=== PATIENT | male | born 1980 | race African-American/Black ===

== ENCOUNTER 2016-06-28 08:19 | Emergency (ER) | payer MEDICARE ==
[~2016-06-28] VITALS: Ht 180.3 cm; Wt 81.6 kg
[2016-06-28 08:31] VITALS: BP 152/91
[2016-06-28] MEDS ORDERED: DOXY100C37 PO (09:35)
[2016-06-28] MEDS ORDERED: ULTR50TA PO (09:35)
== END 2016-06-28 09:57 | disposition home or self-care (01) ==
LOC: M ED 09:51
DX: L73.2 Hidradenitis suppurativa (principal)

== ENCOUNTER 2016-09-16 10:39 | Emergency (ER) | payer MEDICARE ==
[~2016-09-16] VITALS: Ht 180.3 cm; Wt 81.6 kg
[~2016-09-16 10:39] MED LIST: DOXY100C37 PO; ULTR50TA PO
[2016-09-16] MEDS ORDERED: NORCO, ANEXSIA 5/325MG TABLET (HYDROcodone/ACETAMINOPHEN) PO ONE (11:30)
--- NOTE | 2016-09-16 11:42 | REP ---
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 There is no acute fracture or subluxation. There is no disc bulge or herniation. The spinal canal and neural foramina are patent. The intervertebral discs and vertebral bodies are normal in height. IMPRESSION: There is no acute fracture or subluxation. Signed by Mayito Pereira MD 09/16/2016 11:33 A
--- NOTE | 2016-09-16 12:10 | REP ---
THORACIC SPINE SERIES: Three views. HISTORY: Trauma. FINDINGS: Thoracic vertebral body heights are preserved and alignment is normal. There is minimal discogenic spurring in the mid thoracic spine. Pedicles and posterior elements are intact. No paravertebral soft-tissue mass is seen. IMPRESSION: No fracture or collapse seen. Negative T-spine views. Signed by Conner Rodrate MD 09/16/2016 01:00 P
[2016-09-16] MEDS ORDERED: ZANA4TAB PO (12:17)
[2016-09-16] MEDS ORDERED: IBUP600T26 PO (12:17)
[2016-09-16 12:26] VITALS: BP 156/98
== END 2016-09-16 12:30 | disposition home or self-care (01) ==
LOC: M ED 11:21
DX: S13.4XXA Sprain of ligaments of cervical spine, initial encounter (principal); W10.8XXA Fall (on) (from) other stairs and steps, initial encounter; Y92.018 Other place in single-family (private) house as the place of occurrence of the external cause; Y93.89 Activity, other specified; Y99.8 Other external cause status; Z87.820 Personal history of traumatic brain injury; Z88.0 Allergy status to penicillin; F17.210 Nicotine dependence, cigarettes, uncomplicated

== ENCOUNTER 2016-10-18 11:42 | Emergency (ER) | payer MEDICARE, OTHER ==
[~2016-10-18] VITALS: Ht 180.3 cm; Wt 92.0 kg
[~2016-10-18 11:42] MED LIST changes: +IBUP-1022 PO; -ULTR50TA PO; +ULTR50TA8 PO; +ZANA4TAB PO
[2016-10-18 11:43] VITALS: BP 143/96
[2016-10-18] MEDS ORDERED: NORCO, ANEXSIA 5/325MG TABLET (HYDROcodone/ACETAMINOPHEN) PO ONE (12:30)
[2016-10-18] MEDS ORDERED: BACT800T5 PO (12:30)
[2016-10-18] MEDS ORDERED: NORCOTAB PO (12:30)
[2016-10-18] MEDS ORDERED: BACTRIM 160MG/800MG DS TAB PO ONE (12:30)
== END 2016-10-18 12:59 | disposition home or self-care (01) ==
LOC: M ED 11:42
DX: L02.411 Cutaneous abscess of right axilla (principal); Z87.820 Personal history of traumatic brain injury; Z88.0 Allergy status to penicillin; F17.210 Nicotine dependence, cigarettes, uncomplicated

== ENCOUNTER 2017-05-20 12:22 | Emergency (ER) | payer MEDICARE, OTHER | END 2017-05-20 13:21 | disposition left against medical advice (07) | LOC: M ED 12:22 | DX: Z53.29 Procedure and treatment not carried out because of patient's decision for other reasons (principal) ==

== ENCOUNTER 2017-05-21 09:41 | Emergency (ER) | payer MEDICARE, OTHER | END 2017-05-21 10:42 | disposition home or self-care (01) | LOC: M ED 09:41 | DX: L02.412 Cutaneous abscess of left axilla (principal); L73.2 Hidradenitis suppurativa; Z88.0 Allergy status to penicillin; F17.210 Nicotine dependence, cigarettes, uncomplicated | CPT/HCPCS: 87186; 87205 ==

== ENCOUNTER 2017-07-06 13:30 | Emergency (ER) | payer MEDICARE, OTHER ==
[2017-07-06] MEDS: NAPROXEN 250 MG TAB PO (13:58)
[2017-07-06] MEDS: DERMABOND TOPICAL SKIN ADHESIVE TOP (13:58)
== END 2017-07-06 14:13 | disposition home or self-care (01) ==
LOC: M ED 13:30
DX: S61.215A Laceration without foreign body of left ring finger without damage to nail, initial encounter (principal); W26.0XXA Contact with knife, initial encounter; Y92.009 Unspecified place in unspecified non-institutional (private) residence as the place of occurrence of the external cause; Y93.G1 Activity, food preparation and clean up; Z88.0 Allergy status to penicillin
CPT/HCPCS: 12001

== ENCOUNTER 2017-12-08 22:01 | Emergency (ER) | payer MEDICARE ==
[2017-12-08 23:35] LABS: KETONE, URINE AUTO RFX NEGATIVE (NEGATIVE); LEUKOCYTE ESTERASE UR AUTO RFX NEGATIVE (NEGATIVE); MUCUS, URINE RFX SMALL (NEGATIVE); NITRITE, URINE AUTO RFX NEGATIVE (NEGATIVE); RBC, URINE AUTO RFX 1 /HPF (0-3); SPECIFIC GRAVITY UR AUTO RFX 1.025 (1.002-1.035); SQUAM EPITHELIAL CELL UR AURFX 0 /HPF (0-6); WBC, URINE AUTO RFX 0 /HPF (0-3)
[2017-12-08] MEDS: CLINDAMYCIN 150 MG CAP PO ×2 (23:59)
[2017-12-08] MEDS: NORCO 5/325MG TABLET (BULK FOR ED) PO ×2 (23:59)
== END 2017-12-09 00:11 | disposition home or self-care (01) ==
LOC: M ED 22:01
DX: L73.2 Hidradenitis suppurativa (principal); Z72.0 Tobacco use; Z79.899 Other long term (current) drug therapy; Z88.0 Allergy status to penicillin
CPT/HCPCS: 81001

== ENCOUNTER 2018-03-22 22:49 | Emergency (ER) | payer OTHER, MEDICARE ==
[2018-03-22] MEDS: OXYCODONE/APAP 5MG/325MG(BULK FOR ED) 1 TABLET PO (23:20)
[2018-03-22] MEDS: CLINDAMYCIN 150 MG CAP PO (23:20)
== END 2018-03-22 23:45 | disposition home or self-care (01) ==
LOC: M ED 22:49
DX: L02.411 Cutaneous abscess of right axilla (principal); S61.431A Puncture wound without foreign body of right hand, initial encounter; W26.8XXA Contact with other sharp object(s), not elsewhere classified, initial encounter; Y92.89 Other specified places as the place of occurrence of the external cause; F33.9 Major depressive disorder, recurrent, unspecified; F41.9 Anxiety disorder, unspecified; F43.10 Post-traumatic stress disorder, unspecified; F90.9 Attention-deficit hyperactivity disorder, unspecified type; Z88.0 Allergy status to penicillin; F17.210 Nicotine dependence, cigarettes, uncomplicated
CPT/HCPCS: 87186

== ENCOUNTER → 2018-05-14 | Outpatient (CLI) | payer OTHER ==
[~2018-05-14] MED LIST changes: +ALPR1TAB3; +ALPR1TAB3 PO; +AMPHET/DEXTR PO; +BACT800T5 PO; +BENA25TA10 PO; +CLEO300C2 PO; +CLIN1GEL22 EX; +IBUP1TAB7 PO; +NORCOTAB PO; +PERC5TAB12 PO; +PRAV40TA2; +PRAZ1CAP; +PRED20TA PO
== END ==
LOC: M LAB 14:42
PROVIDERS: ATTEND Family Medicine
DX: Z79.899 Other long term (current) drug therapy (principal)

== ENCOUNTER 2018-08-12 08:37 | Emergency (ER) | payer MEDICARE ==
[~2018-08-12] VITALS: Ht 180.3 cm; Wt 85.6 kg
[~2018-08-12 08:37] MED LIST changes: +HYDR-3715 PO; -NORCOTAB PO
[2018-08-12 08:38] VITALS: BP 125/80
[2018-08-12] MEDS ORDERED: BACT800T5 PO (09:31)
[2018-08-12] MEDS ORDERED: ZITH250T PO (09:31)
[2018-08-12] MEDS ORDERED: LIDVISCBTL TOP (09:40)
== END 2018-08-12 09:45 | disposition home or self-care (01) ==
LOC: M ED 08:37
DX: J02.9 Acute pharyngitis, unspecified (principal); L02.411 Cutaneous abscess of right axilla; I10 Essential (primary) hypertension; R51 Headache; Z87.820 Personal history of traumatic brain injury; F90.9 Attention-deficit hyperactivity disorder, unspecified type; F43.10 Post-traumatic stress disorder, unspecified; F41.9 Anxiety disorder, unspecified; F32.9 Major depressive disorder, single episode, unspecified; E78.5 Hyperlipidemia, unspecified; L73.2 Hidradenitis suppurativa; Z88.0 Allergy status to penicillin

== ENCOUNTER 2019-02-27 09:13 | Emergency (ER) | payer MEDICARE ==
[~2019-02-27] VITALS: Ht 180.3 cm; Wt 88.8 kg
[~2019-02-27 09:13] MED LIST changes: +LIDVISCBTL TOP; +ZITH250T PO
[2019-02-27 10:05] LABS: BASO # 0.1 10^3/uL (0.0-0.2); BASO % 0.7 % (0.0-1.0); EOS # 0.2 10^3/uL (0.0-0.5); EOS % 2.9 % (0.0-3.0); HEMATOCRIT 47.6 % (42.0-52.0); HEMOGLOBIN 15.1 g/dl (13.5-17.5); LYMPH # 2.9 10^3/uL (1.5-5.0); LYMPH % 40.6 % (24.0-44.0); MEAN CORPUSCULAR HEMOGLOBIN 28.1 pg (27.0-33.0); MEAN CORPUSCULAR HGB CONC 31.7 g/dl (32.0-36.5); MEAN CORPUSCULAR VOLUME 88.6 fl (80.0-96.0); MONO # 0.6 10^3/uL (0.0-0.8); MONO % 8.1 % (0.0-5.0); NEUTROPHILS # 3.4 10^3/uL (1.5-8.5); NEUTROPHILS % 47.3 % (36.0-66.0); PLATELET COUNT, AUTOMATED 272 10^3/uL (150-450); RED BLOOD COUNT 5.37 10^6/uL (4.30-6.10); WHITE BLOOD COUNT 7.2 10^3/uL (4.0-10.0)
[2019-02-27 10:13] LABS: INR 1.03; PROTHROMBIN TIME 13.2 SECONDS (11.8-14.0)
[2019-02-27 10:14] LABS: PARTIAL THROMBOPLASTIN TIME 31.2 SECONDS (25.0-38.4)
[2019-02-27 10:26] LABS: APPEARANCE, URINE CLEAR (CLEAR); BACTERIA, URINE AUTO NEGATIVE (NEGATIVE); BILIRUBIN, URINE AUTO NEGATIVE (NEGATIVE); BLOOD, URINE BLOOD NEGATIVE (NEGATIVE); COLOR, URINE YELLOW (YELLOW); GLUCOSE, URINE (UA) AUTO NEGATIVE (NEGATIVE); KETONE, URINE AUTO NEGATIVE (NEGATIVE); LEUKOCYTE ESTERASE, URINE AUTO NEGATIVE (NEGATIVE); MUCUS, URINE SMALL (NEGATIVE); NITRITE, URINE AUTO NEGATIVE (NEGATIVE); PROTEIN, URINE AUTO NEGATIVE (NEGATIVE); RBC, URINE AUTO 0 /HPF (0-3); SPECIFIC GRAVITY URINE AUTO 1.017 (1.002-1.035); SQUAMOUS EPITHELIAL CELL UR AU 0 /HPF (0-6); UROBILINOGEN, URINE AUTO 0.2 mg/dL (0.0-2.0); WBC, URINE AUTO 0 /HPF (0-3)
[2019-02-27 10:28] LABS: ALBUMIN 3.8 GM/DL (3.2-5.2); ALT/SGPT 32 U/L (12-78); AMYLASE 92 U/L (25-115); BILIRUBIN,TOTAL 0.6 MG/DL (0.2-1.0); BLOOD UREA NITROGEN 10 MG/DL (7-18); CARBON DIOXIDE LEVEL 27 MEQ/L (21-32); CHLORIDE LEVEL 109 MEQ/L (98-107); CREATININE FOR GFR 1.07 MG/DL (0.70-1.30); GLOMERULAR FILTRATION RATE > 60.0 (>60); GLUCOSE, FASTING 78 MG/DL (70-100); LIPASE 140 U/L (73-393); POTASSIUM SERUM 4.4 MEQ/L (3.5-5.1); SODIUM LEVEL 140 MEQ/L (136-145); TOTAL PROTEIN 7.6 GM/DL (6.4-8.2)
[2019-02-27] MEDS ORDERED: ISOVUE-370 76% 100ML VIAL (Q9967) As Ordered ONE (10:40)
[2019-02-27] MEDS ORDERED: KETOROLAC 30 MG/ML VIAL (J1885) IV ONE (11:15)
[2019-02-27 11:50] VITALS: BP 127/88
--- NOTE | 2019-02-27 11:52 | REP ---
CT ABDOMEN AND PELVIS WITH IV BUT WITHOUT ORAL CONTRAST: HISTORY: Abdomen pain right lower quadrant. Constipation. Rectal bleeding. CT CONTRAST DOSE: 100 mL of intravenous Isovue-370. CT FINDINGS: Digital preliminary principal database developer radiograph is unremarkable. Normal bowel gas pattern. The lung bases are clear on axial CT images. The liver and the spleen are normal in size, homogeneous in texture. No adrenal lesion is seen. No abnormalities noted in the gallbladder. The pancreas is unremarkable. There are multiple tiny subcentimeter cysts affecting the left kidney. None are visible in the right kidney. There is no evidence of hydronephrosis. No mass or calculus is seen. No retroperitoneal mass or adenopathy is seen. Small and large intestinal bowel loops are unremarkable in the upper abdomen. Pelvic CT images demonstrate a normal appendix, just above the urinary bladder in the right lower pelvis. There is no CT evidence of appendicitis. Seminal vesicles, prostate, and urinary bladder are unremarkable. No pelvic mass or adenopathy is seen. No abdominal wall defect is observed. No bony destructive lesion seen. IMPRESSION: No acute abdominal or pelvic abnormality. Normal appendix seen. Multiple tiny subcentimeter cysts affecting the left kidney. Electronically Signed by Conner Rodarte MD 02/27/2019 05:01 P
== END 2019-02-27 12:07 | disposition home or self-care (01) ==
LOC: M ED 09:13 → EDBD 09:13 → M ED 12:07
DX: K64.5 Perianal venous thrombosis (principal); F17.200 Nicotine dependence, unspecified, uncomplicated; Z88.0 Allergy status to penicillin
CPT/HCPCS: 74177; 80053; 81001; 82150; 83690; 85025; 85610; 85730; 86850; 86900; 86901; 96374; 99284; J1885; Q9967

== ENCOUNTER 2019-06-14 09:42 | Emergency (ER) | payer MEDICARE, OTHER ==
[~2019-06-14] VITALS: Ht 180.3 cm; Wt 89.7 kg
[2019-06-14 09:42] VITALS: BP 128/97
[2019-06-14] MEDS ORDERED: BACT800T5 PO (10:08)
[2019-06-14] MEDS ORDERED: CLEO1GEL TOP (10:08)
[2019-06-14] MEDS ORDERED: IBUP-1022 PO (10:22)
== END 2019-06-14 10:22 | disposition home or self-care (01) ==
LOC: M ED 09:42
DX: L73.2 Hidradenitis suppurativa (principal); L03.111 Cellulitis of right axilla; F17.200 Nicotine dependence, unspecified, uncomplicated; Z88.0 Allergy status to penicillin

== ENCOUNTER 2019-06-23 19:00 | Emergency (ER) | payer MEDICARE, OTHER ==
[~2019-06-23] VITALS: Ht 180.3 cm; Wt 90.7 kg
[~2019-06-23 19:00] MED LIST changes: +CLEO1GEL TOP
[2019-06-23] MEDS ORDERED: KETOROLAC 30 MG/ML VIAL (J1885) IV ONE (21:15)
[2019-06-23] MEDS ORDERED: DOXYCYCLINE HYCLATE 100 MG in D5W MINI-BAG PLUS 100 ML IV ONE (21:15)
[2019-06-23 22:08] LABS: HEMATOCRIT 44.7 % (42.0-52.0); HEMOGLOBIN 14.4 g/dl (13.5-17.5); MEAN CORPUSCULAR HEMOGLOBIN 27.5 pg (27.0-33.0); MEAN CORPUSCULAR HGB CONC 32.2 g/dl (32.0-36.5); MEAN CORPUSCULAR VOLUME 85.5 fl (80.0-96.0); PLATELET COUNT, AUTOMATED 280 10^3/uL (150-450); RED BLOOD COUNT 5.23 10^6/uL (4.30-6.10); WHITE BLOOD COUNT 11.3 10^3/uL (4.0-10.0)
[2019-06-23 22:24] LABS: ANISOCYTOSIS 1+; ATYPICAL LYMPH 2 % (0-5); BASOPHILS 1 % (0-1); EOSINOPHILS 6 % (0-3); HYPOCHROMASIA 1+; LYMPHOCYTES 36 % (16-44); MONOCYTES 5 % (0-5); NEUTROPHILS 50 % (28-66)
[2019-06-23 22:25] LABS: PLATELET ESTIMATE NORMAL (NORMAL); TEAR DROP CELLS 1+
[2019-06-23 22:26] LABS: BLOOD UREA NITROGEN 11 MG/DL (7-18); CALCIUM LEVEL 8.6 MG/DL (8.5-10.1); CARBON DIOXIDE LEVEL 26 MEQ/L (21-32); CHLORIDE LEVEL 108 MEQ/L (98-107); CREATININE FOR GFR 1.07 MG/DL (0.70-1.30); GLOMERULAR FILTRATION RATE > 60.0 (>60); GLUCOSE, FASTING 87 MG/DL (70-100); OVALOCYTES 1+; POTASSIUM SERUM 4.1 MEQ/L (3.5-5.1); SODIUM LEVEL 138 MEQ/L (136-145)
[2019-06-23 23:55] VITALS: BP 136/82
== END 2019-06-23 23:57 | disposition home or self-care (01) ==
LOC: M ED 19:00
DX: L73.2 Hidradenitis suppurativa (principal); I10 Essential (primary) hypertension; E78.5 Hyperlipidemia, unspecified; F17.200 Nicotine dependence, unspecified, uncomplicated; Z88.0 Allergy status to penicillin
CPT/HCPCS: 80048; 85025; 87040; 96365; 96375; 99284; J1885

== ENCOUNTER 2020-05-02 14:34 | Emergency (ER) | payer MEDICARE, OTHER ==
[~2020-05-02] VITALS: Ht 180.3 cm; Wt 86.2 kg
[2020-05-02] MEDS ORDERED: FLUORESCEIN OPHTH 1 MG STRIP OD ONE (15:15)
[2020-05-02] MEDS ORDERED: PROPARACAINE 0.5% OPHTH SOL 15ML OD ONE (15:15)
[2020-05-02] MEDS ORDERED: SULF10SO13 OP (16:04)
[2020-05-02 16:26] VITALS: BP 137/100
== END 2020-05-02 16:29 | disposition home or self-care (01) ==
LOC: EDBD 14:34 → M ED 14:34
DX: S05.01XA Injury of conjunctiva and corneal abrasion without foreign body, right eye, initial encounter (principal); W22.8XXA Striking against or struck by other objects, initial encounter; Y92.89 Other specified places as the place of occurrence of the external cause; I10 Essential (primary) hypertension; Z79.899 Other long term (current) drug therapy; Z88.0 Allergy status to penicillin; F17.210 Nicotine dependence, cigarettes, uncomplicated

== ENCOUNTER 2020-10-27 11:55 | Observation (INO) | payer MEDICARE, OTHER ==
[~2020-10-27] VITALS: Ht 180.3 cm; Wt 80.4 kg
[~2020-10-27 11:55] MED LIST changes: -DOXY100C37 PO; +DOXY1CAP62 PO; +SULF10SO13 OP
[2020-10-27] MEDS ORDERED: MAGIC MOUTHWASH *ED ONLY* 5ML ORAL SYRINGE SS ONE (17:00)
[2020-10-27] MEDS ORDERED: ACETAMINOPHEN 325 MG TAB PO ONE (17:00)
[2020-10-27] MEDS ORDERED: NS 1,000 ML IV ONE ×2 (17:00→18:25)
[2020-10-27] MEDS ORDERED: ONDANSETRON 4MG/2ML VIAL IV ONE (17:05)
[2020-10-27] MEDS ORDERED: AZITHROMYCIN 250MG TABLET PO ONE (17:15)
[2020-10-27 17:54] LABS: BASO # 0.1 10^3/uL (0.0-0.2); BASO % 0.4 % (0.0-1.0); EOS % 0.2 % (0.0-3.0); HEMATOCRIT 50.8 % (42.0-52.0); HEMOGLOBIN 16.6 g/dl (13.5-17.5); LYMPH # 2.7 10^3/uL (1.5-5.0); MEAN CORPUSCULAR HEMOGLOBIN 27.9 pg (27.0-33.0); MEAN CORPUSCULAR HGB CONC 32.7 g/dl (32.0-36.5); MEAN CORPUSCULAR VOLUME 85.5 fl (80.0-96.0); MONO # 1.4 10^3/uL (0.0-0.8); NEUTROPHILS # 15.2 10^3/uL (1.5-8.5); NEUTROPHILS % 77.8 % (36.0-66.0); PLATELET COUNT, AUTOMATED 316 10^3/uL (150-450); RED BLOOD COUNT 5.94 10^6/uL (4.30-6.10); WHITE BLOOD COUNT 19.5 10^3/uL (4.0-10.0)
[2020-10-27 18:24] LABS: ALBUMIN 3.9 GM/DL (3.2-5.2); ALT/SGPT 26 U/L (12-78); BILIRUBIN,DIRECT 0.1 MG/DL (0.0-0.2); BILIRUBIN,TOTAL 0.6 MG/DL (0.2-1.0); BLOOD UREA NITROGEN 6 MG/DL (7-18); CALCIUM LEVEL 9.7 MG/DL (8.5-10.1); CARBON DIOXIDE LEVEL 22 MEQ/L (21-32); CHLORIDE LEVEL 105 MEQ/L (98-107); CREATININE FOR GFR 0.93 MG/DL (0.70-1.30); GLOMERULAR FILTRATION RATE > 60.0 (>60); GLUCOSE, FASTING 92 MG/DL (70-100); LIPASE 91 U/L (73-393); POTASSIUM SERUM 3.9 MEQ/L (3.5-5.1); SODIUM LEVEL 139 MEQ/L (136-145); TOTAL PROTEIN 8.2 GM/DL (6.4-8.2)
[2020-10-27] MEDS ORDERED: ISOVUE-370 76% 100ML VIAL As Ordered ONE (18:26)
[2020-10-27] MEDS ORDERED: methylPREDNISolone 125MG 2ML VIAL IV ONE (18:35)
[2020-10-27 18:50] LABS: RSV AMPLIFICATION NEGATIVE (NEGATIVE)
[2020-10-27] MEDS ORDERED: METOCLOPRAMIDE INJ 10MG/2ML VIAL (J2765 PER 1) IV ONE (18:55)
[2020-10-27] MEDS ORDERED: CLINDAMYCIN 600 MG in IV 1 EA IV ONE (19:05)
--- NOTE | 2020-10-27 19:32 | REP ---
INDICATION: swelling, tenderness r armpit. COMPARISON: None. TECHNIQUE: Standard soft tissue ultrasound with color Doppler imaging FINDINGS: Area of the palpable finding with scan in the right axilla. Very superficially in the right axilla is 1.7 x 1.1 x 0.3 cm hypoechoic focus without any blood flow seen within it on color flow imaging. There was no other masses pathologic sized nodes. IMPRESSION: Superficial 1.7 x 1.1 x 0.3 cm subcutaneous hypoechoic focus without color flow within. This may reflect phlegmon or early abscess. This corresponds precisely to the location of the swelling and tenderness of the axilla at the palpable site. <Electronically signed by Shai Porter > 10/27/201927
--- NOTE | 2020-10-27 19:46 | REPVR ---
PROCEDURE INFORMATION: Exam: CT Abdomen And Pelvis With Contrast Exam date and time: 10/27/2020 6:32 PM Age: 40 years old Clinical indication: Abdominal pain TECHNIQUE: Imaging protocol: Computed tomography of the abdomen and pelvis with contrast. Radiation optimization: All CT scans at this facility use at least one of these dose optimization techniques: automated exposure control; mA and/or kV adjustment per patient size (includes targeted exams where dose is matched to clinical indication); or iterative reconstruction. Contrast material: ISOVUE 370; Contrast volume: 100 ml; Contrast route: INTRAVENOUS (IV); COMPARISON: CT ABD/PEL W/IV CONTRAST ONLY 02/27/2019 10:45 AM FINDINGS: Liver: Enhancing 11 mm nodule in the left lobe of the liver is unchanged, likely a hemangioma. Liver is otherwise unremarkable. Gallbladder and bile ducts: Normal. No calcified stones. No ductal dilation. Pancreas: Normal. No ductal dilation. Spleen: Normal. No splenomegaly. Adrenal glands: Normal. No mass. Kidneys and ureters: Small cysts in the left kidney. No renal masses. No calculi or hydronephrosis. Stomach and bowel: Unremarkable. No obstruction. No inflammatory changes or mucosal thickening. Appendix: No evidence of appendicitis. Intraperitoneal space: No free air. No significant fluid collection. Vasculature: Unremarkable. No abdominal aortic aneurysm. Lymph nodes: Unremarkable. No enlarged lymph nodes. Urinary bladder: Unremarkable as visualized. Reproductive: Unremarkable as visualized. Bones/joints: Unremarkable. No acute fracture. Soft tissues: Unremarkable. IMPRESSION: 1. No acute findings. 2. Stable benign incidental findings as above. COMMENTS: Consistent with the [employer]'s Incidental Findings Committee white paper (J Am Bucky Radiol 2018): Any incidental renal lesion less than 1 cm or classified as too small to characterize, or any incidental cystic renal lesion characterized as simple-appearing, is likely benign. No follow-up imaging is recommended for these lesions per consensus recommendations based on imaging criteria. Electronically signed by: Lon Potter On 10/27/2020 19:46:08 PM
[2020-10-27] MEDS ORDERED: NS 1,000 ML IV SCH (21:10)
[2020-10-27] MEDS ORDERED: EPIP0.3I2 IM (22:15)
[2020-10-27] MEDS ORDERED: D31000TA2 PO (22:15)
[2020-10-27] MEDS ORDERED: HEMO1SUP10 PR (22:15)
[2020-10-27] MEDS ORDERED: TRAM50TA2 PO (22:15)
[2020-10-27] MEDS ORDERED: MELO15TA28 PO (22:15)
[2020-10-27] MEDS ORDERED: EXCETAB33 PO (22:15)
[2020-10-27] MEDS ORDERED: PROAAER10 INH (22:15)
[2020-10-27] MEDS ORDERED: PRAZ1CAP PO (22:15)
[2020-10-27] MEDS ORDERED: SILD100T PO (22:15)
[2020-10-27] MEDS ORDERED: CLIN1GEL3 TOP (22:15)
[2020-10-27] MEDS ORDERED: ROSU40TA4 PO (22:15)
[2020-10-27] MEDS ORDERED: ALBUTEROL 90 MCG/ACT 8GM HFA INHALER INH PRN (23:00)
[2020-10-27] MEDS ORDERED: **SFRHE** EPINEPHrine (EPIPEN) 0.3MG/0.3ML SYRINGE INJ PRN (23:00)
[2020-10-27] MEDS ORDERED: MAALOX 30 ML SUSP *UDC PO PRN (23:00)
[2020-10-27] MEDS ORDERED: ACETAMINOPHEN TAB 650MG DOSE (2X325MG) PO PRN (23:00)
[2020-10-27] MEDS ORDERED: MOM 30ML SUSPENSION UDC PO PRN (23:00)
[2020-10-27] MEDS ORDERED: traMADol 50 MG TAB PO PRN (23:00)
[2020-10-27] MEDS ORDERED: EXCEDRIN MIGRAINE TABLET PO PRN (23:00)
[2020-10-27] MEDS ORDERED: MELOXICAM (MOBIC) 7.5 MG TAB PO PRN (23:00)
[2020-10-27] MEDS ORDERED: ONDANSETRON 4MG/2ML VIAL IV PRN (23:00)
--- NOTE | 2020-10-27 23:15 | HPEPDOC ---
[facility] Medical History & Physical Date of Admission Oct 27, 2020 Date of Service: Oct 27, 2020 Other Provider Kyree Barksdale MD Attending Physician: AHSAN FERRARI MD History and Physical TIME OF SERVICE 11:55pm CC: ear pain HPI: , a 40 yr old M, developed ear pain on Friday. There after he developed a sore throat, abdominal pain, fever, nausea, non-bloody vomiting & non- bloody diarrhea. Because of the throat pain he has not been able to eat or drink much. He took Excedrin twice which hasnt helped alleviate his symptoms. He denies having a rash or sick contacts. Per d/w THERESA Proctor the patients strep test was positive. She also discussed the axillary lesion with who recommended abx. ROS: 10 point ROS negative except as listed in HPI PMH/PSH: Hidradenitis Suppurativa, Asthma, DLP, Vasectomy, hx of PTSD & TBI SH: He smokes tobacco and THC products and drinks alcohol rarely; he served in the [employer] and retired from the for medical reasons FMH: DM, Cancer MEDS: see below ALLERGIES: see below PE: Vital Signs Date Time Temp Pulse Resp B/P (MAP) Pulse Ox O2 Delivery O2 Flow Rate FiO2 10/27/20 11:56 98.3 85 16 159/107 (124) 100 Room Air GEN: well nourished and developed / NAD HEENT: MM pink but slightly dry /on conjunctival injection / tonsils hyperemic w/o exudates CVS: RRR/NMRG LUNGS: CTAB on RA ABD: contour flat MSK: NCAT NOREEN x 4 extremities NEURO: CN 2-12 grossly intact /speech not dysarthric PSYCH: A&O / able to understand and follow all commands LABS: IMAGING: CT abd/pelvis IMPRESSION: 1. No acute findings. 2. Stable benign incidental findings as above. US Extremities IMPRESSION: Superficial 1.7 x 1.1 x 0.3 cm subcutaneous hypoechoic focus without color flow within. This may reflect phlegmon or early abscess. This corresponds precisely to the location of the swelling and tenderness of the axilla at the palpable site. MICROBIOLOGY: + norovirus ASSESSMENT: is a 40 yr old w a hx of Hidradenitis Suppurativa, Asthma, DLP, PTSD & TBI who is admitted for management of intractable vomiting. PLAN: 1 NVD 2/2 Norovirus Plan: admit bc of persistent vomiting / Zofran & f/u EKG to check QTc / IVF / CLD & advance diet as tolerated 2 Strep throat ? Plan: Cepacol throat spray 3 Reactive Leukocytosis Plan: f/u CBC 4 Hidradenitis Suppurativa Imaging reports reviewed Plan: per c/w topical Clindamycin and add Azithromycin & f/u on QTc 5 Asthma Stable Plan: albuterol 6 DLP Plan: statin 7 Tobacco Abuse Plan: smoking cessation education / declined nicotine patch DVT px TEDs/SCDs Dispo: home after less than 2 midnights stay Home Medications Scheduled Azithromycin (Azithromycin) 250 Mg Tablet, 250 MG PO QHS Cholecalciferol (Vitamin D3) (Vitamin D3) 1,000 Unit Tablet, 2,000 UNITS PO TANMAY Y Phenylephrine HCl/[place] Butter (Hemorrhoidal Suppositories) 1 Each Supp.rect, 1 SUPP MA DAILY Prazosin Hcl (Prazosin HCl) 1 Mg Capsule, 1 MG PO QHS Rosuvastatin Calcium (Rosuvastatin Calcium) 40 Mg Tablet, 40 MG PO DAILY Scheduled PRN Albuterol Sulfate (Proair Hfa) 8.5 Gm Hfa.aer.ad, 2 PUFF INH Q4H PRN for SHORTNESS OF BREATH Aspirin/Acetaminophen/Caffeine (Excedrin Migraine Caplet) 1 Each Tablet, 2 TAB PO Q6H PRN for PAIN LEVEL 1-5 Clindamycin Phosphate (Clindagel) 75 Ml Gel.daily, 1 DOSE EXT TID PRN for ACNE APPLIES TO RIGHT ARMPIT Epinephrine (Epipen 2-Mauri) 0.3 Mg/0.3 Ml Auto.injct, 0.3 MG IM ASDIRECTED PRN for ANAPHYLAXIS Magic Mouthwash (First-Mouthwash Blm) 1 Ea Susp, 10 ML SSP QID PRN for MUCOSITIS (Diphenhydramine/maalox/lidocaine 1:1:1) May compound if kit unavailable/not covered by insurance Meloxicam (Meloxicam) 15 Mg Tablet, 15 MG PO DAILY PRN for PAIN LEVEL 1-5 Sildenafil Citrate (Sildenafil Citrate) 100 Mg Tablet, 100 MG PO DAILY PRN for ERECTILE DYSFUNCTION Tramadol HCl (Tramadol HCl) 50 Mg Tablet, 100 MG PO BID PRN for PAIN LEVEL 5-10 Allergies Coded Allergies: bee venom protein (honey bee) (Verified Allergy, Severe, ANAPHYLAXIS, 10/27/20) Penicillins (Verified Allergy, Unknown, 08/12/18) A-FIB/CHADSVASC A-FIB History Current/History of A-Fib/PAF?: No Current PO Anticoag Therapy: No AHSAN FERRARI MD Oct 27, 2020 23:15
[2020-10-28] MEDS ORDERED: CHLORASEPTIC SPRAY MT PRN (00:35)
[2020-10-28 02:20] VITALS: BP 140/92
[2020-10-28] MEDS: NS 1,000 ML IV SCH ×2 (02:25→08:18)
[2020-10-28 06:00] VITALS: BP 128/89
[2020-10-28 06:25] LABS: HEMATOCRIT 45.2 % (42.0-52.0); HEMOGLOBIN 14.8 g/dl (13.5-17.5); MEAN CORPUSCULAR HEMOGLOBIN 28.2 pg (27.0-33.0); MEAN CORPUSCULAR HGB CONC 32.7 g/dl (32.0-36.5); MEAN CORPUSCULAR VOLUME 86.1 fl (80.0-96.0); PLATELET COUNT, AUTOMATED 304 10^3/uL (150-450); RED BLOOD COUNT 5.25 10^6/uL (4.30-6.10); WHITE BLOOD COUNT 18.7 10^3/uL (4.0-10.0)
[2020-10-28] MEDS ORDERED: CLINDAMYCIN TOP 1% SOLN 60 ML BTL TOP SCH (09:00)
[2020-10-28] MEDS ORDERED: ROSUVASTATIN 10 MG TAB (CRESTOR) PO SCH (09:00)
--- NOTE | 2020-10-28 11:24 | IPNPDOC ---
Subjective Date Seen The patient was seen on 10/28/20. Subjective Chief Complaint/HPI Feeling much better this morning no further nausea or vomiting overnight. He is bowel movements are also getting thicker not as watery as before. Denies abdominal pain. His sore throat is also better and he reports that he is hungry and would like to try some solid food. No fever or chills. Objective Physical Examination General Exam: Positive: Alert, Cooperative, No Acute Distress Eye Exam: Positive: PERRLA, Conjunctiva & lids normal, EOMI; Negative: Sclera icteric ENT Exam: Positive: Atraumatic, Mucous membr. moist/pink, Pharynx Normal Neck Exam: Positive: Supple; Negative: JVD, thyromegaly Chest Exam: Positive: Clear to auscultation, Normal air movement Heart Exam: Positive: Rate Normal, Regular Rhythm, Normal S1, Normal S2; Negative: Murmurs, Rubs Abdomen Exam: Positive: Normal bowel sounds, Soft; Negative: Tenderness Extremity Exam: Negative: Clubbing, Cyanosis, Edema Assessment /Plan Assessment is a 40 yr old w a hx of Hidradenitis Suppurativa, Asthma, DLP, PTSD & TBI who is admitted for management of intractable vomiting. He was found to have norovirus gastroenteritis. Gastroenteritis Due to norovirus Seems to have improved. No further vomiting overnight, only 1 loose bowel movement this morning which is not as watery as before Will advance diet Sore throat Likely due to excessive vomiting and dry heaving Improved today Reactive Leukocytosis Improving Blood cultures had been sent from ED which I will follow Hidradenitis Suppurativa Imaging reports reviewed per c/w topical Clindamycin and add Azithromycin Asthma Stable Continue albuterol DLP statin Tobacco Abuse smoking cessation education / declined nicotine patch Plan/VTE VTE Prophylaxis Ordered?: No (Fully ambulatory) VS, I&O, 24H, Fishbone Vital Signs/I&O Vital Signs Date Time Temp Pulse Resp B/P (MAP) Pulse Ox O2 Delivery O2 Flow Rate FiO2 10/28/20 06:00 98.7 86 16 128/89 (102) 100 Room Air I&O- Last 24 Hours up to 6 AM 10/28/20 06:00 Intake Total 350 ml Output Total 0 ml Balance 350 ml Laboratory Data 24H LABS Laboratory Tests 2 10/27/20 17:30: Immature Granulocyte % (Auto) 0.6, Neutrophils (%) (Auto) 77.8H, Lymphocytes (%) (Auto) 14.0L, Monocytes (%) (Auto) 7.0, Eosinophils (%) (Auto) 0.2, Basophils (%) (Auto) 0.4, Neutrophils # (Auto) 15.2H, Lymphocytes # (Auto) 2.7, Monocytes # (Auto) 1.4H, Eosinophils # (Auto) 0.0, Basophils # (Auto) 0.1, Nucleated Red Blood Cells % (auto) 0.0, Urine Color YELLOW, Urine Appearance CLEAR, Urine pH 6.0, Urine Specific [place] 1.023, Urine Protein 2+H, Urine Glucose (UA) NEGATIVE, Urine Ketones 1+H, Urine Blood NEGATIVE, Urine Nitrite NEGATIVE, Urine Bilirubin NEGATIVE, Urine Urobilinogen 4.0H, Urine Leukocyte Esterase NEGATIVE, Urine WBC (Auto) 1, Urine RBC (Auto) 5H, Urine Hyaline Casts (Auto) 0, Urine Bacteria (Auto) NEGATIVE, Urine Squamous Epithelial Cells 0, Urine Mucus (Auto) SMALL, Urine Sperm (Auto) , Anion Gap 12, Glomerular Filtration Rate > 60.0, Lactic Acid Level 1.4, Calcium Level 9.7, Total Bilirubin 0.6, Direct Bilirubin 0.1, Aspartate Amino Transf (AST/SGOT) 9, Alanine Aminotransferase (ALT/SGPT) 26, Alkaline Phosphatase 106, Total Protein 8.2, Albumin 3.9, Albumin/Globulin Ratio 0.9, Lipase 91, Coronavirus (COVID-19)(PCR) NEGATIVE, Influenza Type A (RT-PCR) NEGATIVE, Influenza Type B (RT-PCR) NEGATIVE, Respiratory Syncytial Virus (PCR) NEGATIVE 10/28/20 06:05: Nucleated Red Blood Cells % (auto) 0.0 CBC/BMP Laboratory Tests 10/27/20 17:30 10/28/20 06:05 Microbiology Microbiology 10/27/20 Gastrointestinal Tract Panel (PCR) - Final, Complete Norovirus 10/27/20 Blood Culture, Received Pending 10/27/20 Blood Culture, Received Pending RUSS JOSEPH MD Oct 28, 2020 11:24
[2020-10-28] MEDS ORDERED: AZIT-12 PO (13:12)
[2020-10-28] MEDS ORDERED: MAGICMW SSP (14:22)
[2020-10-28] MEDS ORDERED: AZITHROMYCIN 250MG TABLET PO SCH ×2 (21:00→23:00)
[2020-10-28] MEDS ORDERED: PRAZOSIN 1 MG CAP PO SCH (21:00)
--- NOTE | 2020-10-28 21:09 | ECGEPIP ---
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
[2020-10-29] MEDS ORDERED: MAGICMW SSP (18:54)
[2020-10-29] MEDS ORDERED: AZIT-10 PO (18:58)
== END 2020-10-28 14:35 | disposition home or self-care (01) ==
LOC: M ED 11:55 → M ED INP 11:56 → ENRESERV 10-28 01:18 → M MSPAV 10-28 02:25
PROVIDERS: ADMIT Internal Medicine; ATTEND Internal Medicine Nephrology
DX: A08.11 Acute gastroenteropathy due to Norwalk agent (principal); R07.0 Pain in throat; L73.2 Hidradenitis suppurativa; J45.909 Unspecified asthma, uncomplicated; E78.49 Other hyperlipidemia; F17.218 Nicotine dependence, cigarettes, with other nicotine-induced disorders; Z79.899 Other long term (current) drug therapy; Z91.030 Bee allergy status; Z88.0 Allergy status to penicillin; M79.601 Pain in right arm
CPT/HCPCS: 36415; 74177; 76882; 80048; 80076; 81001; 83605; 83690; 85025; 85027; 87040; 87505; 87631; 87880; 93005; 96361; 96365; 96375; 99284; G0378; J2405; J2765; J2930; Q9967

== ENCOUNTER 2020-10-29 11:25 | Observation (INO) | payer MEDICARE, OTHER ==
[~2020-10-29] VITALS: Ht 175.3 cm; Wt 83.0 kg
[~2020-10-29 11:25] MED LIST changes: +AZIT-12 PO; +CLIN1GEL3 TOP; +D31000TA2 PO; +EPIP0.3I2 IM; +EXCETAB33 PO; +HEMO1SUP10 PR; +MAGICMW SSP; +MELO15TA28 PO; +PRAZ1CAP PO; +PROAAER10 INH; +ROSU40TA4 PO; +SILD100T PO; +TRAM50TA2 PO
[2020-10-29 12:30] LABS: BASO # 0.1 10^3/uL (0.0-0.2); BASO % 0.3 % (0.0-1.0); EOS % 0.1 % (0.0-3.0); HEMATOCRIT 43.8 % (42.0-52.0); HEMOGLOBIN 14.4 g/dl (13.5-17.5); LYMPH # 2.4 10^3/uL (1.5-5.0); LYMPH % 12.4 % (24.0-44.0); MEAN CORPUSCULAR HGB CONC 32.9 g/dl (32.0-36.5); MEAN CORPUSCULAR VOLUME 85.2 fl (80.0-96.0); MONO % 10.7 % (2.0-8.0); NEUTROPHILS # 14.7 10^3/uL (1.5-8.5); PLATELET COUNT, AUTOMATED 321 10^3/uL (150-450); RED BLOOD COUNT 5.14 10^6/uL (4.30-6.10)
[2020-10-29 13:00] LABS: WHITE BLOOD COUNT 19.3 10^3/uL (4.0-10.0)
[2020-10-29 13:01] LABS: MONO # 2.1 10^3/uL (0.0-0.8)
[2020-10-29 13:03] LABS: BLOOD UREA NITROGEN 9 MG/DL (7-18); CALCIUM LEVEL 8.9 MG/DL (8.5-10.1); CARBON DIOXIDE LEVEL 24 MEQ/L (21-32); CHLORIDE LEVEL 107 MEQ/L (98-107); CREATININE FOR GFR 0.93 MG/DL (0.70-1.30); GLOMERULAR FILTRATION RATE > 60.0 (>60); GLUCOSE, FASTING 89 MG/DL (70-100); POTASSIUM SERUM 3.6 MEQ/L (3.5-5.1); SODIUM LEVEL 138 MEQ/L (136-145)
[2020-10-29] MEDS ORDERED: NS 1,000 ML IV ONE (13:50)
[2020-10-29] MEDS ORDERED: KETOROLAC 30 MG/ML 1ML VIAL IV ONE (13:50)
[2020-10-29] MEDS ORDERED: KETOROLAC 30 MG/ML 1ML VIAL As Ordered ONE (13:56)
[2020-10-29] MEDS ORDERED: ISOVUE-370 76% 100ML VIAL As Ordered ONE (14:10)
[2020-10-29 14:22] LABS: ALBUMIN 3.4 GM/DL (3.2-5.2); ALT/SGPT 65 U/L (12-78); BILIRUBIN,DIRECT 0.1 MG/DL (0.0-0.2); BILIRUBIN,TOTAL 0.7 MG/DL (0.2-1.0); C REACTIVE PROTEIN QUANTITATIV 9.55 MG/DL (0.00-0.30); TOTAL PROTEIN 7.6 GM/DL (6.4-8.2)
--- NOTE | 2020-10-29 15:18 | REP ---
INDICATION: R/O RETROPHARYNGEAL ABSCESS. COMPARISON: Axial soft tissue images from CT cervical spine 09/16/2016. TECHNIQUE: Bolus 75 mL Isovue 370 scanning through the neck soft tissues from heart skull base to the thoracic inlet. Coronal and sagittal reconstructions provided. FINDINGS: There is asymmetric fullness of the tonsillar fossa on the left with hypodensity within it measuring 18 mm AP by 9 mm transverse. It may be as long as 4 cm on the sagittal reconstructions but dental amalgam spray artifact makes it difficult for precise measurement. The right tonsillar fossa was unremarkable. There is effacement of the left piriform sinus. Valleculae were unremarkable the epiglottis was unremarkable. There is no prevertebral swelling. Tongue base was unremarkable. Nodes in the carotid space up to 13 mm on the left and 9 mm on the right. Submandibular and parotid glands are symmetric and unremarkable. Nasopharyngeal airway is narrowed but the oropharynx and hypopharynx along with larynx and subglottic trachea are all unremarkable. Anterior and posterior cervical chain nodes are otherwise symmetric and unremarkable. Bone windows show the cervical spine, as posterior elements, craniocervical junction, mandible maxilla and visualized facial bone/skull base to be unremarkable. IMPRESSION: 1. Left-sided tonsillar/peritonsillar abscess 1.8 x 0.9 x 4 cm. This does not efface the airway the oropharynx but the nasopharynx is slightly narrowed. The hypopharynx, larynx and subglottic trachea widely patent. There is effacement of the left piriform sinus. Valleculae and epiglottis unremarkable. Some reactive nodes in the anterior cervical chain at the carotid space noted on the left. No other significant findings. <Electronically signed by Shai Porter > 10/29/20 0625
[2020-10-29] MEDS ORDERED: LIDOCAINE W/EPINEPHRINE 1% 20ML VIAL SC ONE (16:05)
[2020-10-29] MEDS ORDERED: HYDROCORTISONE 100 MG/2 ML VIAL (J1720 PER 1) IV SCH (18:05)
[2020-10-29] MEDS ORDERED: ACETAMINOPHEN TAB 650MG DOSE (2X325MG) PO PRN (18:05)
--- NOTE | 2020-10-29 18:09 | HPEPDOC ---
[facility] Medical History & Physical Date of Admission Oct 29, 2020 Date of Service: Oct 29, 2020 History and Physical Chief complaint: Who presented to the hospital with complaints of sore throat History of present illness: Patient is a 40-year-old -N[place]alese male who was recently at [facility] for reported strep throat and aggravation of his hidradenitis suprativa. Patient was actually discharged on 10/28 with topical clindamycin. Patients presented back to the hospital with worsening sore throat reported clogging feeling and mucostasis within his mouth. Patient reported his neck appeared inflamed with some swelling reported significant burning throat and had difficulty with swallowing. On arrival to emergency room, patient had a CT scan completed a regular evidence of an abscess. ENT was called and has performed a bedside I&D in the emergency room. Hospital services called for further evaluation and treatment. Currently patient denies any nausea, vomiting, abdominal pain, constipation, diarrhea, or urinary discomfort, has reported some chills at home and a fever of 102.4F while at home. Past Medical History: Hidradenitis Suppurativa Asthma DLP PTSD & Hx of TBI Past Surgical History: Vasectomy Incision and drainage of her throat abscess 2005 Allergies: See below Medications: See below Family History: - Family history of diabetes, heart disease and cancer Social History: - Patient reports that he quit smoking a few days ago. Reports occasional marijuana use. 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 medical discharge Review of Systems: 10 point review of systems complete, all negative otherwise stated in HPI Physical exam: - Vitals: BP [150/93], HR [84], RR [20], Sat [100%RA], Temp [98.9F] - General: Lying in bed, Speaking in full sentences, AAOx3 - HEENT: NC, AT, PERRLA, left tonsil pillar appears inflamed with drainage noted - CVS: RRR, +S1S2 - Lungs: Fair air entry bilaterally, No appreciable wheezing / rales / rhonchi - Abdomen: Soft, Non-distended, Non-tender - Extremities: + PPx4, No lower extremity edema, No calf tenderness - Neuro: No focal motor or sensory deficit - Skin: No visible rashes Labs: See below Imaging: CT Neck 10/29: 1. Left-sided tonsillar/peritonsillar abscess 1.8 x 0.9 x 4 cm. This does not efface the airway the oropharynx but the nasopharynx is slightly narrowed. The hypopharynx, larynx and subglottic trachea widely patent. There is effacement of the left piriform sinus. Valleculae and epiglottis unremarkable. Some reactive nodes in the anterior cervical chain at the carotid space noted on the left. No other significant findings. EKG: See below Assessment and Plan: Tonsillar/peritonsillar abscess - Patient presented to the hospital with worsening sore throat - Physical reveals an inflamed left tonsil - Patient is hemodynamically stable and afebrile - Leukocytosis without lactic acidosis, CRP is elevated - Imaging noted above - I&D performed by ENT in the ER; case discussed with Dr. Benjamin - Will check blood cultures / procalcitonin / MRSA screen / Trend CRP - Will start Clindamycin and Solucortef IV s/p Diarrhea - 2/2 Norvovirus - Clinically has reported improvement Hidradenitis Suppurativa - Patient has reported some discharge from his right axilla - Has been on topical clindamycin - Will start IV Clindamycin (See above) Asthma - No evidence of exacerbation - Continue with inhaled therapy as ordered DLP - c/w Statin PTSD & Hx of TBI DVT prophylaxis - Will start Heparin Vital Signs Vital Signs Date Time Temp Pulse Resp B/P (MAP) Pulse Ox O2 Delivery O2 Flow Rate FiO2 10/29/20 15:40 98.9 84 20 150/93 (112) 100 Room Air Laboratory Data Labs 24H Laboratory Tests 2 10/29/20 12:19: Immature Granulocyte % (Auto) 0.5, Neutrophils (%) (Auto) 76.0H, Lymphocytes (%) (Auto) 12.4L, Monocytes (%) (Auto) 10.7H, Eosinophils (%) (Auto) 0.1, Basophils (%) (Auto) 0.3, Neutrophils # (Auto) 14.7H, Lymphocytes # (Auto) 2.4, Monocytes # (Auto) 2.1H, Eosinophils # (Auto) 0.0, Basophils # (Auto) 0.1, Nucleated Red Blood Cells % (auto) 0.0, Anion Gap 7L, Glomerular Filtration Rate > 60.0, Calcium Level 8.9, Total Bilirubin 0.7, Direct Bilirubin 0.1, Aspartate Amino Transf (AST/SGOT) 31, Alanine Aminotransferase (ALT/SGPT) 65, Alkaline Phosphatase 86, C-Reactive Protein, Quantitative 9.55H, Total Protein 7.6, Albumin 3.4, Albumin/Globulin Ratio 0.8 10/29/20 14:16: Lactic Acid Level 1.0 CBC/BMP Laboratory Tests 10/29/20 12:19 Microbiology Microbiology 10/29/20 Blood Culture, Received Pending 10/29/20 Blood Culture, Received Pending Home Medications Scheduled Azithromycin (Azithromycin) 250 Mg Tablet, 250 MG PO QHS Cholecalciferol (Vitamin D3) (Vitamin D3) 1,000 Unit Tablet, 2,000 UNITS PO DAILY Phenylephrine HCl/[place] Butter (Hemorrhoidal Suppositories) 1 Each Supp.rect, 1 SUPP MI DAILY Prazosin Hcl (Prazosin HCl) 1 Mg Capsule, 1 MG PO QHS Rosuvastatin Calcium (Rosuvastatin Calcium) 40 Mg Tablet, 40 MG PO DAILY Scheduled PRN Albuterol Sulfate (Proair Hfa) 8.5 Gm Hfa.aer.ad, 2 PUFF INH Q4H PRN for SHORTNESS OF BREATH Aspirin/Acetaminophen/Caffeine (Excedrin Migraine Caplet) 1 Each Tablet, 2 TAB PO Q6H PRN for PAIN LEVEL 1-5 Clindamycin Phosphate (Clindagel) 75 Ml Gel.daily, 1 DOSE EXT TID PRN for ACNE APPLIES TO RIGHT ARMPIT Epinephrine (Epipen 2-Mauri) 0.3 Mg/0.3 Ml Auto.injct, 0.3 MG IM ASDIRECTED PRN for ANAPHYLAXIS Magic Mouthwash (First-Mouthwash Blm) 1 Ea Susp, 10 ML SSP QID PRN for MUCOSITIS (Diphenhydramine/maalox/lidocaine 1:1:1) May compound if kit unavailable/not covered by insurance Meloxicam (Meloxicam) 15 Mg Tablet, 15 MG PO DAILY PRN for PAIN LEVEL 1-5 Sildenafil Citrate (Sildenafil Citrate) 100 Mg Tablet, 100 MG PO DAILY PRN for ERECTILE DYSFUNCTION Tramadol HCl (Tramadol HCl) 50 Mg Tablet, 100 MG PO BID PRN for PAIN LEVEL 5-10 Allergies Coded Allergies: bee venom protein (honey bee) (Verified Allergy, Severe, ANAPHYLAXIS, 10/27/20) Penicillins (Verified Allergy, Unknown, 08/12/18) MAKI DAS MD Oct 29, 2020 18:09
[2020-10-29] MEDS ORDERED: MAGICMW SSP (18:54)
[2020-10-29] MEDS ORDERED: AZIT-10 PO (18:58)
[2020-10-29] MEDS: MORPHINE 2 MG/ML 1ML VIAL (J2270) IV PRN (19:25)
[2020-10-29 19:28] LABS: RSV AMPLIFICATION NEGATIVE (NEGATIVE)
[2020-10-29] MEDS: CLINDAMYCIN 600 MG in IV 1 EA IV SCH (19:35)
[2020-10-29] MEDS: D5W IV SCH (20:45)
[2020-10-29] MEDS: HYDROCORTISONE IV SCH (20:45)
[2020-10-29] MEDS ORDERED: ONDANSETRON 4MG/2ML VIAL IV PRN (20:55)
[2020-10-29 21:10] VITALS: BP 122/96
[2020-10-29] MEDS: HEPARIN SOD (PORCINE) 5000UNITS/ML 1ML VIAL/SYRINGE SC SCH (21:27)
[2020-10-30] MEDS: CLINDAMYCIN 600 MG in IV 1 EA IV SCH ×2 (00:05→06:00)
[2020-10-30] MEDS: D5W IV SCH (03:23)
[2020-10-30] MEDS: HYDROCORTISONE IV SCH (03:23)
[2020-10-30 06:00] VITALS: BP 128/88
[2020-10-30] MEDS: HEPARIN SOD (PORCINE) 5000UNITS/ML 1ML VIAL/SYRINGE SC SCH ×3 (06:01→21:10)
[2020-10-30 06:22] LABS: BASO % 0.1 % (0.0-1.0); HEMOGLOBIN 14.3 g/dl (13.5-17.5); LYMPH # 1.4 10^3/uL (1.5-5.0); LYMPH % 7.5 % (24.0-44.0); MEAN CORPUSCULAR HGB CONC 32.5 g/dl (32.0-36.5); MEAN CORPUSCULAR VOLUME 86.1 fl (80.0-96.0); MONO # 0.2 10^3/uL (0.0-0.8); MONO % 1.1 % (2.0-8.0); NEUTROPHILS # 16.9 10^3/uL (1.5-8.5); NEUTROPHILS % 90.8 % (36.0-66.0); PLATELET COUNT, AUTOMATED 335 10^3/uL (150-450); RED BLOOD COUNT 5.11 10^6/uL (4.30-6.10); WHITE BLOOD COUNT 18.6 10^3/uL (4.0-10.0)
[2020-10-30 06:42] LABS: BLOOD UREA NITROGEN 8 MG/DL (7-18); CARBON DIOXIDE LEVEL 25 MEQ/L (21-32); CHLORIDE LEVEL 106 MEQ/L (98-107); CREATININE FOR GFR 0.96 MG/DL (0.70-1.30); GLOMERULAR FILTRATION RATE > 60.0 (>60); GLUCOSE, FASTING 155 MG/DL (70-100); MAGNESIUM LEVEL 2.3 MG/DL (1.8-2.4); POTASSIUM SERUM 4.1 MEQ/L (3.5-5.1); SODIUM LEVEL 140 MEQ/L (136-145)
[2020-10-30] MEDS: predniSONE 20 MG TAB PO SCH (09:16)
--- NOTE | 2020-10-30 09:41 | IPNPDOC ---
Text Note Date of Service The patient was seen on 10/30/20. NOTE Subjective: Patient is a 40-year-old -Lao male who was recently at [facility] for reported strep throat and aggravation of his hidradenitis suprativa. Patient was actually discharged on 10/28 with topical clindamycin. Patients presented back to the hospital with worsening sore throat reported clogging feeling and mucus taste within his mouth. Patient reported his neck appeared inflamed with some swelling reported significant burning throat and had difficulty with swallowing. On arrival to emergency room, patient had a CT scan completed a regular evidence of an abscess. ENT was called and has performed a bedside I&D in the emergency room. Patient was admitted to hospitalist service for further evaluation and treatment. Patient was seen and examined at the bedside. Patient denies chest pain, shortness of breath, palpitations. Reports swelling of his throat has improved. Denies any nausea, vomiting, abdominal pain or diarrhea. Objective: Vitals (See below) General: Sitting up in bed, no acute distress, comfortable, AAOx3 HEENT: NC, AT, peritonsillar swelling improved CVS: +S1S2 Lungs: Fair air entry b/l, no wheezing, rales or rhonchi Abdomen: Soft, nondistended, nontender Extremities: No evidence of edema, - Calf tenderness Imaging: CT Neck 10/29: 1. Left-sided tonsillar/peritonsillar abscess 1.8 x 0.9 x 4 cm. This does not efface the airway the oropharynx but the nasopharynx is slightly narrowed. The hypopharynx, larynx and subglottic trachea widely patent. There is effacement of the left piriform sinus. Valleculae and epiglottis unremarkable. Some reactive nodes in the anterior cervical chain at the carotid space noted on the left. No other significant findings. Assessment and Plan: Tonsillar / Peritonsillar abscess - Patient presented to the hospital with worsening sore throat - Physical with improvement of left tonsillar swelling - Hemodynamically stable and afebrile - Leukocytosis w/ slight improvement, CRP remains elevated - Imaging noted above - I&D performed by ENT in the ER on 10/29 - Blood cultures 10/29: Pending - Wound cultures 10/29: Pending - Procalcitonin / MRSA screen / Trend CRP - c/w Clindamycin; will DC Hydrocortisone and start Prednisone taper - Will await culture results / improvement of CRP s/p Diarrhea - 2/2 Norvovirus - Clinically has reported improvement Hidradenitis Suppurativa - Patient has reported some discharge from his right axilla - Has been on topical clindamycin - c/w Clindamycin PO Asthma - No evidence of exacerbation - Continue with inhaled therapy as ordered DLP - c/w Statin PTSD & Hx of TBI DVT prophylaxis - c/w Heparin Disposition: - Awaiting clinical improvement VSMesha, I+O VSMesha I+O Laboratory Tests 10/29/20 12:19 10/30/20 05:45 Vital Signs Date Time Temp Pulse Resp B/P (MAP) Pulse Ox O2 Delivery O2 Flow Rate FiO2 10/30/20 06:00 97.2 86 18 128/88 (101) 99 Room Air I&O- Last 24 Hours up to 6 AM 10/30/20 06:00 Intake Total 2390 ml Output Total 1200 ml Balance 1190 ml MAKI DAS MD Oct 30, 2020 09:41
[2020-10-30] MEDS: CLINDAMYCIN 150MG CAPSULE PO SCH ×3 (13:53→21:10)
[2020-10-30 14:00] VITALS: BP 143/80
--- NOTE | 2020-10-30 14:36 | RO ---
OPERATIVE NOTE DATE OF OPERATION: 10/29/2020 REASON FOR CONSULTATION: The patient presents with a history of a sore throat on the left side which has been going on for a week. The patient had a previous paratonsillar abscess in the past, but cannot remember what side it is. He has not been on antibiotics. He has been admitted to the hospital for a gastrointestinal problem and was just discharged yesterday. He did have a sore throat at that time. He has had an investigation which showed a paratonsillar abscess on the left side. Otherwise, he is healthy. PHYSICAL EXAMINATION: Examination shows that he has decreased range of motion of his mandible because of trismus. When he does get his mouth open, there is swelling of the left paratonsillar area with 3+ tonsillar hypertrophy on that left side. There is some swelling in his neck. IMPRESSION: The patient has a left paratonsillar abscess. PROCEDURE: I infiltrated the area with lidocaine with epinephrine. I then inserted a needle and kenneth out 5 mL of mucopurulent fluid. I then made an incision and opened the area fully. The patient tolerated the procedure well. The patient will be admitted and placed on IV antibiotics and steroids until his symptoms settle and then discharged to home on oral medications. At a later date, he will need a tonsillectomy.
[2020-10-30] MEDS: MORPHINE 2 MG/ML 1ML VIAL (J2270) IV PRN (21:10)
[2020-10-30 22:00] VITALS: BP 142/103
--- NOTE | 2020-10-30 22:22 | ECGEPIP ---
[facility] Test Date: 2020-10-30 Pat Name: JAMES CADE Department: Room: [place] [address] Gender: Male Lehr Operator: BARBARA : 1980 Requested By: AHSAN FERRARI Order Number: [id number] Reading MD: Adam Busby Measurements Intervals [place] Rate: 78 P: 64 MT: 124 QRS: -13 QRSD: 70 T: 16 QT: 374 QTc: 426 Interpretive Statements Normal sinus rhythm with sinus arrhythmia Last tracing on 10/28/20 at 7:53. Heart rate was faster at 92 bpm Electronically Signed on 10-30-2020 22:21:52 EDT by Adam Busby
[2020-10-31] MEDS: MORPHINE 2 MG/ML 1ML VIAL (J2270) IV PRN (02:57)
[2020-10-31] MEDS ORDERED: KETOROLAC 30 MG/ML 1ML VIAL IV ONE (05:35)
[2020-10-31] MEDS: HEPARIN SOD (PORCINE) 5000UNITS/ML 1ML VIAL/SYRINGE SC SCH ×3 (05:52→21:31)
[2020-10-31 05:53] LABS: BASO # 0.1 10^3/uL (0.0-0.2); BASO % 0.2 % (0.0-1.0); HEMATOCRIT 42.1 % (42.0-52.0); HEMOGLOBIN 13.9 g/dl (13.5-17.5); LYMPH # 3.6 10^3/uL (1.5-5.0); LYMPH % 12.1 % (24.0-44.0); MEAN CORPUSCULAR VOLUME 84.9 fl (80.0-96.0); MONO % 10.5 % (2.0-8.0); NEUTROPHILS # 22.7 10^3/uL (1.5-8.5); NEUTROPHILS % 76.2 % (36.0-66.0); PLATELET COUNT, AUTOMATED 344 10^3/uL (150-450); RED BLOOD COUNT 4.96 10^6/uL (4.30-6.10)
[2020-10-31 06:00] VITALS: BP 142/80
[2020-10-31 06:11] LABS: BLOOD UREA NITROGEN 12 MG/DL (7-18); CALCIUM LEVEL 8.6 MG/DL (8.5-10.1); CARBON DIOXIDE LEVEL 28 MEQ/L (21-32); CHLORIDE LEVEL 109 MEQ/L (98-107); CREATININE FOR GFR 0.87 MG/DL (0.70-1.30); GLOMERULAR FILTRATION RATE > 60.0 (>60); GLUCOSE, FASTING 106 MG/DL (70-100); MAGNESIUM LEVEL 2.3 MG/DL (1.8-2.4); POTASSIUM SERUM 3.8 MEQ/L (3.5-5.1); SODIUM LEVEL 143 MEQ/L (136-145)
[2020-10-31 06:28] LABS: MONO # 3.1 10^3/uL (0.0-0.8); WHITE BLOOD COUNT 29.8 10^3/uL (4.0-10.0)
[2020-10-31] MEDS ORDERED: LevoFLOXacin IV 500 MG in IV 1 EA IV SCH (09:30)
[2020-10-31] MEDS: predniSONE 20 MG TAB PO SCH (09:33)
[2020-10-31] MEDS: CLINDAMYCIN 150MG CAPSULE PO SCH ×4 (09:33→20:37)
[2020-10-31] MEDS: LevoFLOXacin IV 750 MG in IV 1 EA IV SCH (09:43)
[2020-10-31] MEDS: KETOROLAC 30 MG/ML 1ML VIAL IV PRN ×2 (09:44→18:12)
[2020-10-31 14:00] VITALS: BP 128/92
--- NOTE | 2020-10-31 16:06 | IPNPDOC ---
Subjective Date Seen The patient was seen on 10/31/20. Subjective Chief Complaint/HPI Tova is feeling better, he is able to noticed that the swelling is decreasing. He denies having swallowing difficulties and remains afebrile. Objective Physical Examination General Exam: Positive: Alert, No Acute Distress Eye Exam: Positive: PERRLA, Conjunctiva & lids normal, EOMI; Negative: Sclera icteric ENT Exam: Positive: Atraumatic, Mucous membr. moist/pink, Other ENT (patient has a erythema of the left tonsil, and draining exudate) Neck Exam: Positive: Supple, Other (left facial swelling); Negative: JVD, thyromegaly Chest Exam: Positive: Clear to auscultation, Normal air movement Heart Exam: Positive: Rate Normal, Regular Rhythm, Normal S1, Normal S2; Negative: Murmurs, Rubs Telemetry: Positive: No significant arrhythmia Abdomen Exam: Positive: Normal bowel sounds, Soft; Negative: Tenderness, Hepatospenomegaly Male Exam: Positive: Normal Genital Exam Extremity Exam: Positive: Normal pulses; Negative: Clubbing, Cyanosis, Edema Skin Exam: Positive: Nl turgor and temperature; Negative: Rash, Breakdown Neuro Exam: Positive: Normal Gait, Normal Speech, Cranial Nerves 3-12 NL, Reflexes 2+ Psych Exam: Positive: Mental status NL, Mood NL, Oriented x 3 Assessment /Plan Assessment Tonsillar / Peritonsillar abscess - Patient presented to the hospital with worsening sore throat - Physical with improvement of left tonsillar swelling - Hemodynamically stable and afebrile - Leukocytosis w/ slight improvement, CRP remains elevated - Imaging noted above - I&D performed by ENT in the ER on 10/29 - Blood cultures 10/29: ngtd - Wound cultures 10/29: + GAS, resistant to clindamycin, will add levaquin - Procalcitonin / MRSA screen / Trend CRP -Wean prednisone in a.m. -Hopefully discharge in a.m. following IV antibiotic infusion s/p Diarrhea - 2/2 Norvovirus - Clinically has reported improvement Hidradenitis Suppurativa - Patient has reported some discharge from his right axilla - Has been on topical clindamycin - c/w Clindamycin PO Asthma - No evidence of exacerbation - Continue with inhaled therapy as ordered DLP - c/w Statin PTSD & Hx of TBI DVT prophylaxis - c/w Heparin Disposition: - Awaiting clinical improvement Plan/VTE VTE Prophylaxis Ordered?: Yes VS, I&O, 24H, Fishbone Vital Signs/I&O Vital Signs Date Time Temp Pulse Resp B/P (MAP) Pulse Ox O2 Delivery O2 Flow Rate FiO2 10/31/20 14:00 98.9 93 18 128/92 (104) 95 Room Air I&O- Last 24 Hours up to 6 AM 10/31/20 06:00 Intake Total 1080 ml Balance 1080 ml Laboratory Data 24H LABS Laboratory Tests 2 10/31/20 05:33: Immature Granulocyte % (Auto) 1.0, Neutrophils (%) (Auto) 76.2H, Lymphocytes (%) (Auto) 12.1L, Monocytes (%) (Auto) 10.5H, Eosinophils (%) (Auto) 0.0, Basophils (%) (Auto) 0.2, Neutrophils # (Auto) 22.7H, Lymphocytes # (Auto) 3.6, Monocytes # (Auto) 3.1H, Eosinophils # (Auto) 0.0, Basophils # (Auto) 0.1, Nucleated Red Blood Cells % (auto) 0.0, Anion Gap 6L, Glomerular Filtration Rate > 60.0, Calcium Level 8.6, Magnesium Level 2.3, C-Reactive Protein, Quantitative 10.00H CBC/BMP Laboratory Tests 10/31/20 05:33 Microbiology Microbiology 10/29/20 Gram Stain - Final, Complete 10/29/20 Abscess Culture - Final, Complete Streptococcus Pyogenes Grp A 10/29/20 Blood Culture - Preliminary, Resulted No Growth after 48 hours. All Specime... 10/29/20 Blood Culture - Preliminary, Resulted No Growth after 48 hours. All Specime... SHAZIA WHITTINGTON MD Oct 31, 2020 16:06
[2020-10-31] MEDS ORDERED: DOCUSATE SODIUM 100MG CAPSULE PO PRN (18:05)
[2020-10-31 21:30] VITALS: BP 150/84
[2020-11-01] MEDS: HEPARIN SOD (PORCINE) 5000UNITS/ML 1ML VIAL/SYRINGE SC SCH (05:15)
[2020-11-01 06:00] VITALS: BP 148/96
[2020-11-01 06:21] LABS: HEMATOCRIT 41.4 % (42.0-52.0); HEMOGLOBIN 13.7 g/dl (13.5-17.5); MEAN CORPUSCULAR HEMOGLOBIN 28.1 pg (27.0-33.0); MEAN CORPUSCULAR HGB CONC 33.1 g/dl (32.0-36.5); MEAN CORPUSCULAR VOLUME 84.8 fl (80.0-96.0); PLATELET COUNT, AUTOMATED 348 10^3/uL (150-450); RED BLOOD COUNT 4.88 10^6/uL (4.30-6.10)
[2020-11-01 06:32] LABS: WHITE BLOOD COUNT 23.6 10^3/uL (4.0-10.0)
[2020-11-01 06:41] LABS: BLOOD UREA NITROGEN 15 MG/DL (7-18); C REACTIVE PROTEIN QUANTITATIV 8.45 MG/DL (0.00-0.30); CALCIUM LEVEL 8.4 MG/DL (8.5-10.1); CARBON DIOXIDE LEVEL 29 MEQ/L (21-32); CHLORIDE LEVEL 108 MEQ/L (98-107); CREATININE FOR GFR 0.92 MG/DL (0.70-1.30); GLOMERULAR FILTRATION RATE > 60.0 (>60); GLUCOSE, FASTING 80 MG/DL (70-100); MAGNESIUM LEVEL 2.1 MG/DL (1.8-2.4); POTASSIUM SERUM 3.7 MEQ/L (3.5-5.1); SODIUM LEVEL 141 MEQ/L (136-145)
[2020-11-01 07:38] LABS: ATYPICAL LYMPH 3 % (0-5); LYMPHOCYTES 23 % (16-44); MONOCYTES 11 % (0-5); NEUTROPHILS 63 % (28-66)
[2020-11-01 07:39] LABS: PLATELET ESTIMATE NORMAL (NORMAL)
[2020-11-01] MEDS ORDERED: PRED20TA PO (09:27)
[2020-11-01] MEDS ORDERED: LEVO750T14 PO (09:27)
[2020-11-01] MEDS: predniSONE 20 MG TAB PO SCH (10:11)
[2020-11-01] MEDS: LevoFLOXacin IV 750 MG in IV 1 EA IV SCH (10:11)
[2020-11-01] MEDS: CLINDAMYCIN 150MG CAPSULE PO SCH (10:11)
[2020-11-01] MEDS ORDERED: LevoFLOXacin 750 MG TABLET PO ONE (10:30)
--- NOTE | 2020-11-02 12:18 | DSES ---
DISCHARGE SUMMARY DATE OF ADMISSION: 10/29/2020 DATE OF DISCHARGE: 11/01/2020 DISCHARGE DIAGNOSES: 1. Left tonsillar or peritonsillar abscess with cultures positive for Streptococcus pyogenes, group A. 2. Status post bedside incision and drainage of tonsillar abscess. 3. Status post diarrhea secondary to Norovirus, which has resolved. 4. Chronic hydradenitis suppurativa. 5. Asthma without exacerbation. PROCEDURES PERFORMED DURING THIS HOSPITALIZATION: Bedside incision and drainage (I and D) by ears, nose, and throat (ENT) service. CONSULTS ON THE CASE: Dr. Benjamin of ENT. DISPOSITION: Patient is discharged home. CONDITION ON DISCHARGE: Stable. DISCHARGE INSTRUCTIONS: Patient is instructed to take levofloxacin 750 mg by mouth daily for an additional 5 days as well as prednisone 20 mg daily for an additional 5 days and then discontinue. He is to followup with his primary care physician (PCP) in approximately 1-2 weeks. He is to followup with ENT in approximately 1-2 weeks' time to be evaluated for outpatient tonsillectomy. IMAGING STUDIES OBTAINED DURING HOSPITAL STAY: CT of the neck, which showed left peritonsillar abscess without any airway obstruction. Please reference full report for details. DISCHARGE MEDICATIONS: - levofloxacin 750 mg by mouth daily for 5 days - prednisone 20 mg daily for 5 days - ProAir two puffs every 4 hours as needed for shortness of breath - Excedrin Migraine two capsules every 6 hours as needed for migraine - cholecalciferol 2000 units daily - clindamycin three times a day as needed - epinephrine EpiPen as directed for anaphylaxis. - Magic Mouthwash 10 mL four times a day as needed for mucositis - meloxicam 15 mg daily as needed for pain - prazosin 1 mg by mouth at bedtime - rosuvastatin 40 mg daily - sildenafil citrate 100 mg daily as needed for erectile dysfunction - Tramadol 100 mg twice a day HOSPITAL COURSE: Tova is a 40-year-old gentleman who had been previously hospitalized for a tonsillar abscess. Was discharged on all antibiotics. Returned to the emergency room with worsening left-sided facial swelling and difficulty swallowing with trismus. ENT was consulted and saw the patient in the emergency room and performed a bedside I and D. Cultures taken during this I and D grew Streptococcus pyogenes, group A. Patient was empirically started on clindamycin upon admission to the hospitalist service by DR. Ordaz; however, the culture sensitivities showed resistance to clindamycin. This was discontinued. It shows sensitivity to levofloxacin, and the patient was transitioned to this. Steroids were weaned. Clinically he improved. He remained afebrile, and he was subsequently discharged home in stable condition. At the time of discharge, the patient's temperature is 98.7, pulse 75 and regular, respirations 18, blood pressure 148/96, oxygen saturation 97% on room air. General: The patient is alert and oriented times three and appears in no acute distress. Head is atraumatic, normocephalic. Pupils symmetric and reactive to light. Oropharynx is clear. He has some residual left tonsillar erythema and swelling, but his left neck swelling has diminished significantly. He has some palpable lymphadenopathy in the cervical regions. Neck is otherwise supple. Lung sounds are present without rales or rhonchi. Heart: S1, S2 without murmurs, rubs, or gallops. Abdomen is soft, nontender, nondistended. Extremities without any cyanosis, clubbing or edema. Neurologic: Cranial nerves II-XII grossly intact without any focal neurologic deficits. A total of 30 minutes spent completing all discharge paperwork.
--- NOTE | 2020-11-02 13:03 | DSES ---
DISCHARGE SUMMARY DATE OF ADMISSION: 10/29/2020 DATE OF DISCHARGE: 11/01/2020 DISCHARGE DIAGNOSES: 1. Left tonsillar peritonsillar abscess with culture positive for Streptococcus pyogenes group A 2. Status post bedside irrigation and debridement of tonsillar abscess. 3. Status post diarrhea secondary to Norovirus, which has resolved 4. Chronic hidradenitis suppurative 5. Asthma without exacerbation. PROCEDURES PERFORMED DURING THIS HOSPITALIZATION: Bedside irrigation and debridement by ENT service. CONSULTANTS ON THE CASE: Dr. Benjamin of ENT DISPOSITION: The patient was discharged home. CONDITION ON DISCHARGE: Stable. DISCHARGE INSTRUCTIONS: The patient is instructed to take levofloxacin 750 mg by mouth daily for an additional five days, as well as prednisone 20 mg daily for an additional five days and then discontinue. He is to follow up with his PCP in approximately one to two weeks. He is follow up with ENT in approximately one to two weeks' time to be evaluated for outpatient tonsillectomy. IMAGING OBTAINED DURING THE PATIENT'S HOSPITAL STAY: CT of the neck, which showed left peritonsillar abscess without any airway obstruction. Please reference full report for details. DISCHARGE MEDICATIONS: 1. Levofloxacin 750 mg by mouth a day for five days. 2. Prednisone 20 mg daily for five days. 3. Pro Air 2puffs every 4 hours as needed for shortness of breath 4. Excedrin Migraine two capsules every 6 hours as needed for migraine 5. Cholecalciferol 2000 units daily 6. clindamycin three times a day as needed 7. epinephrine EpiPen as directed for anaphylaxis. 8. Magic mouthwash 10 ml q.i.d. as needed for mucositis 9. Meloxicam 15 mg daily as needed for pain 10.prazosin 1 mg by mouth at bed time 11.Rosuvastatin 40 mg daily 12.sildenafil citrate 100 mg daily as needed for erectile dysfunction 13.tramadol 100 mg twice a day HOSPITAL COURSE: Tova is a 40-year-old gentleman who was previously hospitalized for tonsillar abscess was discharged on oral antibiotics. Returned to the emergency room with worsening left side facial swelling and difficulty swallowing with trismus. ENT was consulted and saw the patient in the emergency room and performed a bedside I and D. Cultures taken during this I and D grew Streptococcus pyogenes. The patient was empirically started on clindamycin on admission to the hospitalist service by Dr. Ordaz. However, the culture sensitivity showed resistance to clindamycin and this was discontinued. Showed sensitivity to levofloxacin and the patient was transitioned to this. Steroids were weaned. Clinically, he improved. He remained afebrile and he was subsequently discharged home in stable condition. PHYSICAL EXAMINATION: At the time of discharge, the patient's temperature is 98.7, pulse 75 and regular, respirations 18, blood pressure 148/96, O2 saturation is 97% on room air. General: The patient is alert and oriented times 3, appears in no acute distress. Head is atraumatic, normocephalic. Pupils symmetric and reactive to light. Oropharynx is clear. He had some residual left tonsillar erythema and swelling, but his left neck swelling has diminished significantly. He has some palpable lymphadenopathy in the cervical region. Neck is otherwise supple. Lung sounds presence without rales or rhonchi. Heart: S1, S2. No rubs or gallops. Abdomen is soft, nontender, non-distended. Extremities without any cyanosis, clubbing or edema. Neuro: Cranial nerves grossly intact without any focal deficits. Total of 30 minutes spent completing discharge paperwork. Primary Care Provider
== END 2020-11-01 12:08 | disposition home or self-care (01) ==
LOC: M ED 11:25 → M ED INP 11:26 → ENRESERV 20:39 → CANRESERV 20:39 → ENRESERV 20:46 → M MSPAV 21:11
PROVIDERS: ADMIT Internal Medicine; ATTEND Internal Medicine
DX: J36 Peritonsillar abscess (principal); B95.0 Streptococcus, group A, as the cause of diseases classified elsewhere; L73.2 Hidradenitis suppurativa; J45.909 Unspecified asthma, uncomplicated; E78.49 Other hyperlipidemia; F43.10 Post-traumatic stress disorder, unspecified; Z87.820 Personal history of traumatic brain injury; Z87.891 Personal history of nicotine dependence; Z79.899 Other long term (current) drug therapy; Z91.030 Bee allergy status; Z88.0 Allergy status to penicillin
CPT/HCPCS: 36415; 42700; 70491; 80048; 80076; 83605; 83735; 84145; 85025; 86140; 87040; 87070; 87077; 87186; 87205; 87631; 87641; 93005; 96365; 96366; 96367; 96372; 96375; 96376; 99284; G0378; J1644; J1720; J1885; J1956; J2270; J2405; J7512; Q9967

== ENCOUNTER → 2021-02-02 | Outpatient (CLI) | payer OTHER ==
[~2021-02-02] MED LIST changes: +AZIT-10 PO; +DOXY-443 PO; -DOXY1CAP62 PO; +LEVO750T14 PO
== END ==
LOC: M LABSMTC 09:34
PROVIDERS: ATTEND Anesthesiology
DX: Z01.812 Encounter for preprocedural laboratory examination (principal); Z20.822 Contact with and (suspected) exposure to COVID-19

== ENCOUNTER 2021-02-07 08:24 | Day surgery (SDC) | payer MEDICARE, OTHER ==
[~2021-02-07] VITALS: Ht 180.3 cm; Wt 90.9 kg
[~2021-02-07 08:24] MED LIST changes: +LIDOCAINE 1% MDV 20ML VIAL SQ PRN; +LIDOCAINE 2% 100MG/5ML SDV (FOR ANES.) As Ordered ONE; +LR 1,000 ML IV ONE; +MIDAZOLAM INJ 2MG/2ML VIAL (J2250 PER 1MG) As Ordered ONE; +ONDANSETRON 4MG/2ML VIAL As Ordered ONE; +ROCURONIUM BROMIDE 50 MG/5 ML VIAL As Ordered ONE; +dexameTHASONE 4 MG/ML 1ML VIAL (J1100 PER 1MG) As Ordered ONE; +fentaNYL 100 MCG/2 ML INJECTION (J3010) As Ordered ONE; +propofoL 200 MG/20 ML VIAL As Ordered ONE
--- OUTSIDE RECORDS SUMMARY | 2021-02-07 08:28 | CCD | Continuity of Care Document ---
Author Author Tova GODWIN MD Organization Unknown Address [address] [place] [id number] Phone [phone] Care Team Providers Care Weaver Hand Name Role Phone [facility] [place] AUTM Problems Active Problems Provider Date Pure hypercholesterolemia Michael Godwin MD Onset: 021 Social History Type Date Description Comments Sex Unknown ETOH Use Occasionally consumes alcohol Tobacco Use Start: Unknown Light tobacco smoker (10 or fewe r cigarettes/day) Recreational Drug Use Regularly uses Marijuana Allergies, Adverse Reactions, Alerts Active Allergies Reaction Severity Comments Date Penicillin V Difficulty breathing Severe 021 Bee Sting 09/01/2020 Medications Active Medications SIG Qnty Indications Ordering Provide r Date Tramadol HCL 50mg Tablets Unknown Albuterol Sulfate HFA 108(90Base) mcg/Act Aerosol inhale 1 puff by mouth every 4 hours as needed Unknown Epipen 2-Mauri 0.3mg/0 .3ML Solution Auto-Inject inject in thigh for allergic reaction and immediately call 911 Unknown Prazosin HCL 1mg Capsules 1 cap by mouth daily at bedtime Unknown Rosuvastatin Calcium 10mg Tablets 1 by mouth every day Unknown Sildenafil Citrate 20mg Tablets 1-2 tabs 30-90 min before sexual activity as needed Unkno wn Immunizations Description No Information Available Vital Signs Date Vital Result Comment 11/22/2020 3:05pm BP Systolic 118 mmHg BP Diastolic 85 mmHg Body Temperature 98.6 F 09/01/2020 1:10pm BP Systolic 125 mmHg BP Diastolic 88 mmHg Heart Rate 88 /min Body Temperature 98.6 F Respiratory Rate 18 /min O2 % BldC Oximetry 98 % Weight 192.00 lb Weight 87.091 kg Height 71 inches 5'11" BMI (Body Mass Index) 26.8 kg/m2 BSA (Body Surface Area) 2.07 m2 Results Test Acquired Date Facility Test Result H/L Range Note Laboratory test finding 11/20/2020 [facility] Covid-19 <pending> Procedures Date Code Description Status 09/01/2020 49619 Office/Outpatient New [facility] 15- 29 Minutes Completed Medical Devices Description No Information Available Encounters Type Date Location Provider Dx Diagnosis Office Visit 11/22/2020 3:00p [facility] Michael Godwin MD L 73.2 Hidradenitis suppurativa Assessments Date Code Description Provider 11/22/2020 L73.2 Hidradenitis suppurativa Michael sharma MD 09/01/2020 L73.2 Hidradenitis suppurativa Michael sharma MD Plan of Treatment Future Appointment(s):* 11/30/2020 1:40 pm - Michael Godwin MD at [facility] 11/22/2020 - Michael Godwin MD* L73.2 Hidradenitis suppurativa* Comments:* He will gradually increase his range of motion with the right upper extremity. He may shower after 48 hours.Follow-up in 2 weeks Functional Status Description No Information Available Mental Status Description No Information Available Referrals Description No Information Available
--- OUTSIDE RECORDS SUMMARY | 2021-02-07 08:28 | CCD | Continuity of Care Document ---
Author Author Tova NOVAK MD Organization Unknown Address [address] [facility] [address] [place] [address] Phone [phone] Care Team Providers Care Manager Workers Compensation Name Role Phone Justus Conley M.D. AUTM [phone] Kyree Barksdale M.D. AUTM [phone] Problems Description No Information Available Social History Type Date Description Comments Sex Unknown ETOH Use Denies alcohol use Recreational Drug Use Current Drug User MARIJUSUMIT A Tobacco Use Start: Unknown End: Unknown Patient is a former smoker Allergies, Adverse Reactions, Alerts Active Allergies Reaction Severity Comments Date Penicillin Hives, Swelling 07/04/2016 Honey Bee Venom 11/13/2020 Medications Description No Active Medications Immunizations Description No Information Available Vital Signs Date Vital Result Comment 11/13/2020 10:55am Height 70 inches 5'10" Weight 189.00 lb BMI (Body Mass Index) 27.1 kg/m2 [place] Body Weight 166 lb Weight 85.730 kg BSA (Body Surface Area) 2.04 m2 07/04/2016 10:28am BP Systolic 144 mmHg BP Diastolic 80 mmHg Height 70 inches 5'10" Weight 195.25 lb BMI (Body Mass Index) 28.0 kg/m2 [place] Body Weight 166 lb Weight 88.565 kg BSA (Body Surface Area) 2.07 m2 Results Description No Information Available Procedures Description No Information Available Medical Devices Description No Information Available Encounters Description No Information Available Assessments Description No Information Available Plan of Treatment No Information Available Functional Status Description No Information Available Mental Status Description No Information Available Referrals Description No Information Available
--- OUTSIDE RECORDS SUMMARY | 2021-02-07 08:28 | CCD | Continuity of Care Document ---
Author Author Tova GODWIN MD Organization Unknown Address [address] [place] [address] Phone [phone] Care Team Providers Care Quality Assurance Tech Name Role Phone [facility] It[place] AUTM Problems Active Problems Provider Date Pure hypercholesterolemia Michael Godwin MD Onset: 021 Social History Type Date Description Comments Sex Unknown ETOH Use Occasionally consumes alcohol Tobacco Use Start: Unknown Light tobacco smoker (10 or fewe r cigarettes/day) Recreational Drug Use Regularly uses Marijuana Allergies, Adverse Reactions, Alerts Active Allergies Criticality Reaction | Severity Comments Date Penicillin V Unable to assess criticality Difficulty breathing | [place] 09/01/2020 Bee Sting Unable to assess criticality 09/01/2020 Medications Active Medications SIG Qnty Indications Ordering Provide r Date Clindamycin HCL 300mg Capsules 300 mg by mouth twice a day 14caps Michael Godwin MD 11/30/2020 Albuterol Sulfate HFA 108(90Base) mcg/Act Aerosol inhale [...] Available Vital Signs Date Vital Result Comment 11/30/2020 1:58pm BP Systolic 122 mmHg BP Diastolic 90 mmHg Heart Rate 81 /min Body Temperature 98.6 F Respiratory Rate 18 /min O2 % BldC Oximetry 98 % 11/22/2020 3:05pm BP Systolic 118 mmHg BP Diastolic 85 mmHg Body Temperature 98.6 F Results Test Acquired Date Facility Test Result H/L Range Note Laboratory test finding 11/20/2020 [facility] Covid-19 <pending> Procedures Date Code Description Status 11/30/2020 23777 I & D Abscess Simple Completed 09/01/2020 54124 Office/Outpatient [facility] 15- 29 Minutes Completed Medical Devices Description No Information Available Encounters Type Date Location Provider Dx Diagnosis Office Visit 12/04/2020 9:00a [facility] Michael Godwin MD L 73.2 Hidradenitis suppurativa L76.34 Postproc seroma of skin, sub cu following other procedure Office Visit 11/30/2020 1:40p [facility] Michael Godwin MD L 73.2 Hidradenitis suppurativa L76.34 Postproc seroma of skin, sub cu following other procedure Assessments Date Code Description Provider 12/04/2020 L73.2 Hidradenitis suppurativa Michael sharma MD 12/04/2020 L76.34 Postprocedural serom a of skin and subcutaneous tissue following other procedure Michael Godwin MD 11/30/2020 L73.2 Hidradenitis suppurativa Micheal sharma MD 11/30/2020 L76.34 Postprocedural serom a of skin and subcutaneous tissue following other procedure Michael Godwin MD 11/22/2020 L73.2 Hidradenitis suppurativa Michael sharma MD 09/01/2020 L73.2 Hidradenitis suppurativa Michael sharma MD Plan of Treatment Future Appointment(s):* 12/08/2020 8:45 am - Michael Godwin MD at [facility] 12/04/2020 - Michael Godwin MD* L73.2 Hidradenitis suppurativa * L76.34 Postprocedural seroma of skin and subcutaneous tissue following other procedure* Comments:* No sign of persistent seroma. No sign of abscess. However, if this localized swelling continues to be present may want to obtain ultrasound to rule out fluid collection. Functional Status Description No Information Available Mental Status Description No Information Available Referrals Description No Information Available"
--- OUTSIDE RECORDS SUMMARY | 2021-02-07 08:28 | CCD | Continuity of Care Document ---
Author Author Tova GODWIN MD Organization Unknown Address [address] [place] [address] Phone [phone] Care Team Providers Care Veterinary Meat Inspector Name Role Phone [facility] AUTM Problems Active Problems Provider [...] <pending> Procedures Date Code Description Status 09/01/2020 07462 Office/Outpatient New [facility] 15- 29 Minutes Completed Medical Devices Description No Information Available Encounters Type Date Location Provider Dx Diagnosis Office Visit 11/22/2020 3:00p [facility] Michael Godwin MD L 73.2 Hidradenitis suppurativa Assessments Date Code Description Provider 11/22/2020 L73.2 Hidradenitis suppurativa Michael sharma MD 09/01/2020 L73.2 Hidradenitis suppurativa Michael sharma MD Plan of Treatment Future Appointment(s):* 11/30/2020 1:40 pm - Michael Godwin MD at [facility] 11/22/2020 - Michael Godwin MD* L73.2 Hidradenitis suppurativa* Comments:* He will gradually increase his range of motion with the right upper extremity. He may shower after 48 hours.Follow-up in 2 weeks Functional Status Description No Information Available Mental Status Description No Information Available Referrals Description No Information Available
--- OUTSIDE RECORDS SUMMARY | 2021-02-07 08:28 | CCD | Continuity of Care Document ---
Author Author Tova GODWIN MD Organization Unknown Address [address] [place] [address] Phone [phone] Care Team Providers Care Rejected Items Clerk Name Role Phone [facility] [place] AUTM Problems Active Problems Provider [...] <pending> Procedures Date Code Description Status 09/01/2020 84672 Office/Outpatient New [facility] 15- 29 Minutes Completed Medical Devices Description No Information Available Encounters Type Date Location Provider Dx Diagnosis Office Visit 11/22/2020 3:00p [facility] Michael Godwin MD L 73.2 Hidradenitis suppurativa Assessments Date Code Description Provider 11/22/2020 L73.2 Hidradenitis suppurativa Michael sharma MD 09/01/2020 L73.2 Hidradenitis suppurativa Michael sharma MD Plan of Treatment Future Appointment(s):* 11/30/2020 1:40 pm - Michael Godwin MD at [facility] 11/22/2020 - Michael Godwin MD* L73.2 Hidradenitis suppurativa* Comments:* He will gradually increase his range of motion with the right upper extremity. He may shower after 48 hours.Follow-up in 2 weeks Functional Status Description No Information Available Mental Status Description No Information Available Referrals Description No Information Available
--- OUTSIDE RECORDS SUMMARY | 2021-02-07 08:28 | CCD | Continuity of Care Document ---
Author Author Tova GODWIN MD Organization Unknown Address [address] [place] [address] Phone [phone] Care Team Providers Care Household Appliances Service Technician Name Role Phone [facility] [place] AUTM Problems Active Problems Provider Date [...] Available Vital Signs Date Vital Result Comment 12/08/2020 9:02am BP Systolic 120 mmHg BP Diastolic 85 mmHg Body Temperature 98.6 F 11/30/2020 1:58pm BP Systolic 122 mmHg BP Diastolic 90 mmHg Heart Rate 81 /min Body Temperature 98.6 F Respiratory Rate 18 /min O2 % BldC Oximetry 98 % Results Test Acquired Date Facility Test Result H/L Range Note Laboratory test finding 11/20/2020 [facility] Covid-19 <pending> Procedures Date Code Description Status 11/30/2020 92651 I & D Abscess Simple Completed 09/01/2020 55386 Office/Outpatient New [facility] 15- 29 Minutes Completed Medical Devices Description No Information Available Encounters Description No Information Available Assessments Date Code Description Provider 12/04/2020 L73.2 Hidradenitis suppurativa Michael sharma MD 12/04/2020 L76.34 Postprocedural serom a of skin and subcutaneous tissue following other procedure Michael Godwin MD 11/30/2020 L73.2 Hidradenitis suppurativa Michael sharma MD 11/30/2020 L76.34 Postprocedural serom a of skin and subcutaneous tissue following other procedure Michael Godwin MD 11/22/2020 L73.2 Hidradenitis suppurativa Michael sharma MD 09/01/2020 L73.2 Hidradenitis suppurativa Michael sharma MD Plan of Treatment Future Appointment(s):* 03/14/2021 10:00 am - Michael Godwin MD at [facility] Functional Status Description No Information Available Mental Status Description No Information Available Referrals Description No Information Available"
--- OUTSIDE RECORDS SUMMARY | 2021-02-07 08:28 | CCD | Continuity of Care Document ---
Author Author Tova GODWIN MD Organization Unknown Address [address] [place] [address] Phone [phone] Care Team Providers Care Small Products Assembler Name Role Phone [facility] [place] AUTM Problems Active Problems Provider Date [...] <pending> Procedures Date Code Description Status 11/30/2020 40527 I & D Abscess Simple Completed 09/01/2020 96294 Office/Outpatient [facility] 15- 29 Minutes Completed Medical Devices Description No Information Available Encounters Type Date Location Provider Dx Diagnosis Office Visit 11/30/2020 1:40p [facility] Michael Godwin MD L 73.2 Hidradenitis suppurativa L76.34 Postproc seroma of skin, sub cu following other procedure Assessments Date Code Description Provider 11/30/2020 L73.2 Hidradenitis suppurativa Michael sharma MD 11/30/2020 L76.34 Postprocedural serom a of skin and subcutaneous tissue following other procedure Michael Godwin MD 11/22/2020 L73.2 Hidradenitis suppurativa Michael sharma MD 09/01/2020 L73.2 Hidradenitis suppurativa Michael sharma MD Plan of Treatment 11/30/2020 - Michael Godwin MD* L73.2 Hidradenitis suppurativa * L76.34 Postprocedural seroma of skin and subcutaneous tissue following other procedure* Comments:* Clindamycin 300 mg by mouth twice a day for 7 days.Follow-up early next week for reevaluation and possible re-aspiration. The wound may require incision and drainage on the right. Functional Status Description No Information Available Mental Status Description No Information Available Referrals Description No Information Available
--- OUTSIDE RECORDS SUMMARY | 2021-02-07 08:28 | CCD | Continuity of Care Document ---
Author Author Tova NOVAK MD Organization Unknown Address [address] [facility] [address] [place] [address] Phone [phone] Care Team Providers Care Cad Cam Programmer Name Role Phone Justus Conley M.D. AUTM [phone] Kyree Barksdale M.D. AUTM [phone] Problems Description No Information Available Social History [...] lb BMI (Body Mass Index) 27.1 kg/m2 [place] Body Weight 166 lb Weight 85.730 kg BSA (Body Surface Area) 2.04 m2 07/04/2016 10:28am BP Systolic 144 mmHg BP Diastolic 80 mmHg Height 70 inches 5'10" Weight 195.25 lb BMI (Body Mass Index) 28.0 kg/m2 [place] Body Weight 166 lb Weight 88.565 kg [...]
--- OUTSIDE RECORDS SUMMARY | 2021-02-07 08:28 | CCD | Continuity of Care Document ---
Author Author Tova BENJAMIN MD Organization Unknown Address [address] [facility] [address] [place] [address] Phone [phone] Care Team Providers Care Business Banker Name Role Phone Justus Conley M.D. AUTM [phone] Kyree Barksdale M.D. AUTM [phone] Problems Description No Information Available Social History Type Date Description Comments Sex Unknown ETOH Use Denies alcohol use Recreational Drug Use Current Drug User MARIMARIANN Burciaga Tobacco Use Start: Unknown End: Unknown Patient is a former smoker Allergies, Adverse Reactions, Alerts Active Allergies Reaction Severity Comments Date Penicillin Hives, Swelling 07/04/2016 Honey Bee Venom 11/13/2020 Medications Description No Active Medications Immunizations Description No Information Available Vital Signs Date Vital Result Comment 11/13/2020 10:55am Height 70 inches 5'10" Weight 189.00 lb BMI (Body Mass Index) 27.1 kg/m2 [place] Body Weight 166 lb Weight 85.730 kg BSA (Body Surface Area) 2.04 m2 07/04/2016 10:28am BP Systolic 144 mmHg BP Diastolic 80 mmHg Height 70 inches 5'10" Weight 195.25 lb BMI (Body Mass Index) 28.0 kg/m2 [place] Body Weight 166 lb Weight 88.565 kg BSA (Body Surface Area) 2.07 m2 Results Description No Information Available Procedures Date Code Description Status 11/13/2020 39912 Office/Outpatient New Moderate M DM 45-59 Minutes Completed Medical Devices Description No Information Available Encounters Type Date Location Provider Dx Diagnosis Office Visit 11/13/2020 10:50a [facility] Ji Benjamin MD J36 Peritonsillar abscess Assessments Date Code Description Provider 11/13/2020 J36 Peritonsillar abscess Ji zuñiga MD Plan of Treatment Future Appointment(s):* 01/11/2021 9:15 am - Ji Benjamin MD at [facility] 11/13/2020 - Ji Benjamin MD* J36 Peritonsillar abscess * All * New Medication:* No Active Medications - Functional Status Description No Information Available Mental Status Description No Information Available Referrals Description No Information Available
--- OUTSIDE RECORDS SUMMARY | 2021-02-07 08:28 | CCD ---
Author Author [facility] Organization [facility] Address Unknown Phone Unavailable Care Team Providers Care Dairy Technologist Name Role Phone Feola, T Catherine PA Unavailable Unavailable Feola, T Catherine PA Unavailable Unavailable Feola, T Catherine PA Unavailable Unavailable Feola, T Catherine PA Unavailable Unavailable Feola, T Catherine PA Unavailable Unavailable Feola, T Catherine PA Unavailable Unavailable Feola, T Catherine PA Unavailable Unavailable Feola, T Catherine PA Unavailable Unavailable Feola, T Catherine PA Unavailable Unavailable Feola, T Catherine PA Unavailable Unavailable Feola, T Catherine PA Unavailable Unavailable Feola, T Catherine PA Unavailable Unavailable Feola, T Catherine PA Unavailable Unavailable Feola, T Catherine PA Unavailable Unavailable Feola, T Catherine PA Unavailable Unavailable Feola, T Catherine PA Unavailable Unavailable Feola, T Catherine PA Unavailable Unavailable Feola, T Catherine PA Unavailable Unavailable Feola, T Catherine PA Unavailable Unavailable Feola, T Catherine PA Unavailable Unavailable Feola, T Catherine PA Unavailable Unavailable Feola, T Catherine PA Unavailable Unavailable Feola, T Catherine PA Unavailable Unavailable Feola, T Catherine PA Unavailable Unavailable Feola, T Catherine PA Unavailable Unavailable Feola, T Catherine PA Unavailable Unavailable Feola, T Catherine PA Unavailable Unavailable Feola, T Catherine PA Unavailable Unavailable Feola, T Catherine PA Unavailable Unavailable Feola, T Catherine PA Unavailable Unavailable Feola, T Catherine PA Unavailable Unavailable Feola, T Catherine PA Unavailable Unavailable Feola, T Catherine PA Unavailable Unavailable Feola, T Catherine PA Unavailable Unavailable Feola, T Catherine PA Unavailable Unavailable Feola, T Catherine PA Unavailable Unavailable Feola, T Catherine PA Unavailable Unavailable Feola, T Catherine PA Unavailable Unavailable Feola, T Catherine PA Unavailable Unavailable Feola, T Catherine PA Unavailable Unavailable Feola, T Catherine PA Unavailable Unavailable Dimitri GODWIN MD Unavailable Unavailable Dimitri GODWIN MD Unavailable Unavailable Dimitri GODWIN MD Unavailable Unavailable Dimitri GODWIN MD Unavailable Unavailable Dimitri GODWIN MD Unavailable Unavailable Dimitri GODWIN MD Unavailable Unavailable Dimitri GODWIN MD Unavailable Unavailable Dimitri GODWIN MD Unavailable Unavailable Dimitri GODWIN MD Unavailable Unavailable Dimitri GODWIN MD Unavailable Unavailable Dimitri GODWIN MD Unavailable Unavailable Dimitri GODWIN MD Unavailable Unavailable Dimitri GODWIN MD Unavailable Unavailable Dimitri GODWIN MD Unavailable Unavailable Dimitri GODWIN MD Unavailable Unavailable Dimitri GODWIN MD Unavailable Unavailable Ji Benjamin MD Unavailable Unavailable Ji Benjamin MD Unavailable Unavailable Ji Benjamin MD Unavailable Unavailable Cassidy Ji MD Unavailable Unavailable Ji Benjamin MD Unavailable Unavailable Cassidy Ji MD Unavailable Unavailable [place] Ji MD Unavailable Unavailable [place] Ji MD Unavailable Unavailable [place] Ji MD Unavailable Unavailable [place] Ji MD Unavailable Unavailable [place], Ji MD Unavailable Unavailable [place], Ji MD Unavailable Unavailable [place] Ji MD Unavailable Unavailable [place], Ji MD Unavailable Unavailable [place], Ji MD Unavailable Unavailable [place], Ji MD Unavailable Unavailable [place], Ji MD Unavailable Unavailable [place], Ji MD Unavailable Unavailable [place], Ji MD Unavailable Unavailable [place], Ji MD Unavailable Unavailable [place], Ji MD Unavailable Unavailable [place], Ji MD Unavailable Unavailable [place], Ji MD Unavailable Unavailable [place], Ji MD Unavailable Unavailable [place], Ji MD Unavailable Unavailable [place], Ji MD Unavailable Unavailable [place], Ji MD Unavailable Unavailable [place], Ji MD Unavailable Unavailable [place], Ji MD Unavailable Unavailable [place], Ji MD Unavailable Unavailable ZULICK, C PETE MD Unavailable Unavailable ZULICK, C PETE MD Unavailable Unavailable ZULICK, C PETE MD Unavailable Unavailable ZULICK, C PETE MD Unavailable Unavailable ZULICK, C PETE MD Unavailable Unavailable ZULICK, C PETE MD Unavailable Unavailable ZULICK, C PETE MD Unavailable Unavailable ZULICK, C PETE MD Unavailable Unavailable ZULICK, C PETE MD Unavailable Unavailable ZULICK, C PETE MD Unavailable Unavailable ZULICK, C PETE MD Unavailable Unavailable ZULICK, C PETE MD Unavailable Unavailable ZULICK, C PETE MD Unavailable Unavailable ZULICK, C PETE MD Unavailable Unavailable ZULICK, C PETE MD Unavailable Unavailable ZULICK, C PETE MD Unavailable Unavailable NOT, SPECIFIED Unavailable Unavailable Re-disclosure Warning The records that you are about to access may contain information from federally-assisted alcohol or drug abuse programs. If such information is present, then the following federally mandated warning applies: This information has been disclosed to you from records protected by federal confidentiality rules (42 CFR part 2). The federal rules prohibit you from making any further disclosure of this information unless further disclosure is expressly permitted by the written consent of the person to whom it pertains or as otherwise permitted by 42 CFR part 2. A general authorization for the release of medical or other information is NOT sufficient for this purpose. The Federal rules restrict any use of the information to criminally investigate or prosecute any alcohol or drug abuse patient.The records that you are about to access may contain highly sensitive health information, the redisclosure of which is protected by Article 27-F of the [facility] Public Health law. If you continue you may have access to information: Regarding HIV / AIDS; Provided by facilities licensed or operated by the [facility] Office of Mental Health; or Provided by the [facility] Office for People With Developmental Disabilities. If such information is present, then the following [facility] mandated warning applies: This information has been disclosed to you from confidential records which are protected by state law. State law prohibits you from making any further disclosure of this information without the specific written consent of the person to whom it pertains, or as otherwise permitted by law. Any unauthorized further disclosure in violation of state law may result in a fine or senior care sentence or both. A general authorization for the release of medical or other information is NOT sufficient authorization for further disc losure. Allergies and Adverse Reactions Type Description Substance Reaction Status Data Source(s ) Propensity to adverse reactions PENICILLIN PENICILLIN ANAPHYLAXIS [facility] Drug allergy BEE VENOM BEE VENOM ANAPHYLAXIS [facility] Family History Family Member Name Family Member Gender Family Member Status Date o f Status Description Data Source(s) Unknown Male Problem [facility] ([facility], ) Encounters Encounter Providers Location Date Indications Data Source(s ) Outpatient Attender: PETE GODWIN MDConsultant: SPECIFIED N OT 12/08/2020 08:59:00 AM EDT - 12/08/2020 08:59:[address] [facility] Outpatient Attender: PETE GODWIN MDConsultant: SPECIFIED N OT 12/04/2020 01:48:00 PM EDT - 12/04/2020 01:48:[address] [facility] Office Visit Attender: PETE GODWIN MD [facility] 2020 09:00:00 AM EDT [facility] ([facility]) Outpatient Attender: PETE GODWIN MDConsultant: SPECIFIED N OT 11/30/2020 01:56:00 PM EDT - 11/30/2020 01:56:[address] [facility] Office Visit Attender: PETE GODWIN MD [facility] 2020 01:40:00 PM EDT [facility] ([facility]) Outpatient Attender: PETE GODWIN MDConsultant: SPECIFIED N OT 11/22/2020 03:04:00 PM EDT - 11/22/2020 03:04:[address] [facility] Office Visit Attender: PETE GODWIN MD [facility] 2020 03:00:00 PM EDT [facility] ([facility]) Outpatient Attender: PETE GODWIN MDConsultant: SPECIFIED N OT 11/17/2020 08:05:22 AM EDT - 11/20/2020 02:24:[address] [facility] Patient discharged. Outpatient Attender: PETE GODWIN MDConsultant: SPECIFIED N OT 11/17/2020 07:57:00 AM EDT - 11/17/2020 08:57:[address] [facility] Outpatient Attender: PETE GODWIN MDConsultant: SPECIFIED N OT 11/16/2020 10:49:00 AM EDT - 11/16/2020 10:50:[address] [facility] Outpatient Attender: Ji Bains/Cassidy/Girish/Noel jim 11/13/2020 10:50:00 AM EDT [facility] ([facility], ) Outpatient Attender: PETE GODWIN MDConsultant: SPECIFIED N OT 11/01/2020 08:14:31 AM EDT - 11/02/2020 12:15:[address] [facility] Patient discharged. Outpatient Attender: PETE GODWIN MDConsultant: SPECIFIED N OT 09/01/2020 01:06:00 PM EDT - 09/01/2020 01:06:[address] [facility] Outpatient Attender: Catherine CARDENAS 020 02:29:15 PM EDT - 12/16/2019 02:42:40 PM EDT [facility] ([facility] ) Medications Medication Brand Name Start Date Product Form Dose Route Admi nistrative Instructions Pharmacy Instructions Status Indications Reaction Description Data Source(s) Clindamycin 300 MG Oral Capsule Clindamycin HCL 11/30/2020 12:00:00 A M EDT ORAL active [facility] ([facility]) Insurance Providers Payer name Policy type / Coverage type Policy ID Covered alliance party ID Covered alliance party's relationship to horowitz Policy Horowitz Plan Information FFS Self Pay [id number] Self [id number] [facility]UM [facility] [id number] SP [id number] 15 'S ADMINISTRATION [id number] SP [id number] [facility] OPTUM MC [id number] 18 [id number] 15 [facility] OPTUM - PHY [id number] WELLCARE [id number] SP [id number] WELLCARE O [id number] S [id number] TODAYS OPTIONS [id number] SP [id number] [facility] [id number] SP [id number] MEDICARE [id number] SP [id number] [facility] [id number] SP [id number] OTHER MCR HMO [id number] SP [id number] MEDICARE C [id number] S [id number] [facility] [id number] SP [id number] Medicare [place] Medicare Primary [id number] Self [id number] ACTIVE DUTY [id number] SP [id number] MEDICAID [id number] SP [id number] [facility] S UNAVAILABLE [id number] C UNAVAILABLE OTHER NO FAULT P [id number] S [id number] OTHER NO FAULT [id number] [place] [id number] [place] [facility] P [id number] S [id number] MEDICARE [id number] SP [id number] [employer] [employer] NO FAULT UNAVAILABLE SP UNAVAILABLE Problems, Conditions, and Diagnoses Code Display Name Description Problem Type Effective Dates Data Source(s) Z4889 Encounter for other specified surgical a ftercare Encounter for other specified surgical aftercare Diagnosis 12/04/2020 01:48:00 PM EDT [facility] L732 Hidradenitis suppurativa Hidradenitis suppurativa Diag nosis 11/30/2020 01:56:[address] [facility] L7634 Postprocedural seroma of ski n and subcutaneous tissue following other procedure Postprocedural seroma of skin and subcut aneous tissue following other procedure Diagnosis 11/30/2020 01:56:[address] [facility] C67171 Nicotine dependence, cigarettes, uncompl icated Nicotine dependence, cigarettes, uncomplicated Diagnosis 11/20/2020 09:30:00 AM EDT [facility] U24811 Unspecified asthma, uncomplicated Unspecified as thma, uncomplicated Diagnosis 11/20/2020 09:30:[address] [facility] E7800 Pure hypercholesterolemia, unspecified P ure hypercholesterolemia, unspecified Diagnosis 11/20/2020 09:30:[address] [facility] L905 Scar conditions and fibrosis of skin Scar condit ions and fibrosis of skin Diagnosis 11/20/2020 09:30:[address] [facility] L720 Epidermal cyst Epidermal cyst Diagnosis 11/20/2020 09:30: [address] [facility] Z1159 Encounter for screening for other viral diseases Encounter for screening for other viral diseases Diagnosis 11/17/2020 07:57:[address] [facility] Z5321 Procedure and treatment not carried out due to patient leaving prior to being seen by health care provider Procedure and treatment not carried out due to patient leaving prior to being seen by health care provider Diagnosis 11/16/2020 10:49:[address] [facility] K97128 Encounter for other preprocedural examin ation Encounter for other preprocedural examination Diagnosis 11/02/2020 11:30:00 AM EDT [facility] [id number] Pure hypercholesterolemia Pure hypercholesterolemia Pr oblem 09/01/2020 12:00:00 AM EDT [facility] ([facility]) Surgeries/Procedures Procedure Description Date Indications Data Source(s) I & D Abscess Simple 11/30/2020 12:00:00 AM EDT [facility] ([facility]) OFFICE OUTPATIENT NEW 45 MINUTES 11/13/2020 12:00:00 A M EDT [facility] ([facility], ) OFFICE OUTPATIENT NEW 20 MINUTES 09/01/2020 12:00:00 A M EDT [facility] ([facility]) Results ID Date Data Source [id number] 12/04/2020 03:26:[address] [facility] Name Value Range Interpretation Code Description Data Margaret rce(s) Supporting Document(s) CULTURE WOUND [facility] _CULTURE WOUND_$$[id number]$$[id number]$$[id number]$$[id number] DATE/TIME: 12/04/2020 12:06Culture: CULTURE WOUND Status: FinalAerobic Bacterial Culture: P1No growth in 36 - 48 hours. Previous result entered on 12/03/2020 03:13 ET No growth after 18-24 hours.P1 Test performed by: [facility] [place] PERUDE #: [id number] [address] [place] [address] [id number] [facility] [id number] Director : Manuel Carrillo MD NPI #:Regional Owner Operator Truck Driver : 12/04/20.1518.XMT.SENT REF 12/04/20.1527.XMT.SENT REF 12/04/20.1527.DW .to [facility] via fax ID Date Data Source [id number] 12/04/2020 03:18:[address] [facility] Name Value Range Interpretation Code Description Data Margaret rce(s) Supporting Document(s) CULTURE WOUND [facility] _CULTURE WOUND_$$[id number]$$[id number]$$[id number]$$[id number]$$[id number]$$[id number] DATE/TIME: 12/04/2020 12:06Culture: CULTURE WOUND Status: FinalAerobic Bacterial Culture: [id number] skin odilon Previous result entered on 12/03/2020 03:13 ET Specimen has been received and testing has been initiated.P1 Test performed by: [facility]: [id number] [address] [place] [address] [id number] [facility] [address] Director : Manuel Carrillo MD NPI #:Regional Owner Operator Truck Driver : 12/04/20.1519.XMT.SENT REF 12/04/20.1519.DW .to [facility] via fax ID Date Data Source [id number] 11/20/2020 08:54:00 AM EDT [facility] ([facility]) Name Value Range Interpretation Code Description Data Margaret rce(s) Supporting Document(s) Covid-19 Laboratory test result [facility] ([facility]) ID Date Data Source [id number] 11/17/2020 08:02:00 AM EDT [facility] Name Value Range Interpretation Code Description Data Margaret rce(s) Supporting Document(s) SARS coronavirus 2 RNA Not Detected [facility] [place] This lab was ordered by [facility] jarret and reported by [facility]. ID Date Data Source [id number] 11/20/2020 06:12:[address] [facility] Name Value Range Interpretation Code Description Data Margaret rce(s) Supporting Document(s) SARS-CoV-2, BRANDI Not Detected Not Detected [facility] This nucleic acid amplification test was developed and its performancecharacteristics determined by [employer]. Nucleic acidamplification tests include RT-PCR and TMA. This test has not beenFDA cleared or approved. This test has been authorized by FDA underan Emergency Use Authorization (EUA). This test is only authorizedfor the duration of time the declaration that circumstances existjustifying the authorization of the emergency use of in vitrodiagnostic tests for detection of SARS-CoV-2 virus and/or diagnosisof COVID-19 infection under section 564(b)(1) of the Act, 21 U.S.C.360bbb-3(b) (1), unless the authorization is terminated or revokedsooner.When diagnostic testing is negative, the possibility of a falsenegative result should be considered in the context of a patient'srecent exposures and the presence of clinical signs and symptomsconsistent with COVID- 19. An individual without symptoms of COVID-19and who is not shedding SARS-CoV-2 virus would expect to have anegative (not detected) result in this assay. ID Date Data Source [id number] 10/29/2020 06:12:00 PM EDT [facility] Name Value Range Interpretation Code Description Data Margaret rce(s) Supporting Document(s) SARS coronavirus 2 RNA [Presence] in Res piratory specimen by BRANDI with probe detection NEGATIVE [facility] This lab was ordered by [facility] a nd reported by [facility]. ID Date Data Source [id number] 10/27/2020 05:30:00 PM EDT [facility] Name Value Range Interpretation Code Description Data Margaret rce(s) Supporting Document(s) SARS coronavirus 2 RNA [Presence] in Res piratory specimen by BRANDI with probe detection NEGATIVE [facility] This lab was ordered by [facility] a nd reported by [facility]. Procedure Social History No Information Vital Signs ID Date Data Source UNK Name Value Range Interpretation Code Description Data Source(s) Systolic blood pressure 120 mm[Hg] 120 mm[Hg] M [facility]ENT ([facility]) Diastolic blood pressure 85 mm[Hg] 85 mm[Hg] [facility] ([facility]) Body temperature 98.6 [degF] 98.6 [degF] [facility] ([facility]) Respiratory rate 18 /min 18 /min [facility] Oxygen saturation in Arterial blood by Pulse oximetry 98 % 98 % [facility]) Systolic blood pressure 122 mm[Hg] 122 mm[Hg] M [facility] ([facility]) Diastolic blood pressure 90 mm[Hg] 90 mm[Hg] [facility] ([facility]) Heart rate 81 /min 81 /min [facility] Body temperature 98.6 [degF] 98.6 [degF] [facility] ([facility]) Systolic blood pressure 118 mm[Hg] 118 mm[Hg] M [facility] ([facility]) Diastolic blood pressure 85 mm[Hg] 85 mm[Hg] [facility] ([facility]) Body temperature 98.6 [degF] 98.6 [degF] [facility]) Anthony body weight 166 [lb_av] 166 [lb_av] [facility] Body height 70 [in_i] 70 [in_i] [facility] ([facility], ) 5'10" Body weight 189.00 [lb_av] 189.00 [lb_av] [facility] Body mass index (BMI) [Ratio] 27.1 kg/m2 27.1 k g/m2 [facility] ([facility], ) Body weight 85.730 kg 85.730 kg [facility] ([facility]) Body surface area Derived from formula 2.04 m2 2.04 m2 [facility] ([facility], ) Heart rate 88 /min 88 /min [facility] ([facility]) Body temperature 98.6 [degF] 98.6 [degF] [facility] ([facility]) Body weight 87.091 kg 87.091 kg [facility] ([facility]) Body height 71 [in_i] 71 [in_i] [facility] 5'11" Body mass index (BMI) [Ratio] 26.8 kg/m2 26.8 k g/m2 [facility] ([facility]) Body surface area Derived from formula 2.07 m2 2.07 m2 [facility] ([facility]) Systolic blood pressure 125 mm[Hg] 125 mm[Hg] [facility] Diastolic blood pressure 88 mm[Hg] 88 mm[Hg] [facility] ([facility]) Respiratory rate 18 /min 18 /min [facility] ( [facility]) Oxygen saturation in Arterial blood by Pulse oximetry 98 % 98 % [facility] ([facility]) Body weight 192.00 [lb_av] 192.00 [lb_av] [facility] T ([facility]) ID Date Data Source [id number] 12/08/2020 09:00:[address] [facility] Name Value Range Interpretation Code Description Data Source(s) WEIGHT RECORDED 198.00 pounds 198.00 pounds [facility] Height [address] [facility]
--- OUTSIDE RECORDS SUMMARY | 2021-02-07 08:28 | CCD | Continuity of Care Document ---
Author Author Tova GODWIN MD Organization Unknown Address [address] [place] [address] Phone [phone] Care Team Providers Care Roller Name Role Phone [facility] It[facility] AUTM Problems Active Problems Provider Date [...] <pending> Procedures Date Code Description Status 09/01/2020 28920 Office/Outpatient [facility] 15- 29 Minutes Completed Medical Devices Description No Information Available Encounters Type Date Location Provider Dx Diagnosis Office Visit 11/22/2020 3:00p [facility] Michael Godwin MD L 73.2 Hidradenitis suppurativa Assessments Date Code Description Provider 11/22/2020 L73.2 Hidradenitis suppurativa Michael sharma MD 09/01/2020 L73.2 Hidradenitis suppurativa Michael sharma MD Plan of Treatment Future Appointment(s):* 11/30/2020 1:40 pm - Michael Godwin MD at [facility] 11/22/2020 - Michael Godwin MD* L73.2 Hidradenitis suppurativa* Comments:* He will gradually increase his range of motion with the right upper extremity. He may shower after 48 hours.Follow-up in 2 weeks Functional Status Description No Information Available Mental Status Description No Information Available Referrals Description No Information Available
--- OUTSIDE RECORDS SUMMARY | 2021-02-07 08:28 | CCD | Continuity of Care Document ---
Author Author Tova NOVAK MD Organization Unknown Address [address] [facility] [address] [place] [address] Phone [phone] Care Team Providers Care [employer] Assistant Name Role Phone Justus Conley M.D. AUTM [phone] Kyree Barksdale M.D. AUTM [phone] Problems Description No Information Available Social History [...] lb BMI (Body Mass Index) 27.1 kg/m2 [place] Body Weight 166 lb Weight 85.730 kg BSA (Body Surface Area) 2.04 m2 07/04/2016 10:28am BP Systolic 144 mmHg BP Diastolic 80 mmHg Height 70 inches 5'10" Weight 195.25 lb BMI (Body Mass Index) 28.0 kg/m2 [place] Body Weight 166 lb Weight 88.565 kg [...]
--- OUTSIDE RECORDS SUMMARY | 2021-02-07 08:28 | CCD | Continuity of Care Document ---
Author Author Tova GODWIN MD Organization Unknown Address [address] [place] [address] Phone [phone] Care Team Providers Care Sports Coordinator Name Role Phone [facility] [place] [...] <pending> Procedures Date Code Description Status 11/30/2020 81556 I & D Abscess Simple Completed 09/01/2020 16664 Office/Outpatient [facility] 15- 29 Minutes Completed Medical Devices Description No Information Available Encounters Type Date Location Provider Dx Diagnosis Office Visit 12/04/2020 9:00a [facility] Michael Godwin MD L 73.2 Hidradenitis suppurativa L76.34 Postproc seroma of skin, sub cu following other procedure Office Visit 11/30/2020 1:40p [facility] Michael Godwin MD L 73.2 [...] 8:45 am - Michael Godwin MD at [facility] 12/04/2020 - Michael Godwin MD* [...]
--- OUTSIDE RECORDS SUMMARY | 2021-02-07 08:28 | CCD | Continuity of Care Document ---
Author Author Tova NOVAK MD Organization Unknown Address [address] [facility] [address] [place] [address] Phone [phone] Care Team Providers Care Silk Spotter Name Role Phone Justus Conley M.D. AUTM [phone] Kyree Barksdale M.D. AUTM [phone] Problems Description No Information Available Social History [...] lb BMI (Body Mass Index) 27.1 kg/m2 [place] Body Weight 166 lb Weight 85.730 kg BSA (Body Surface Area) 2.04 m2 07/04/2016 10:28am BP Systolic 144 mmHg BP Diastolic 80 mmHg Height 70 inches 5'10" Weight 195.25 lb BMI (Body Mass Index) 28.0 kg/m2 [place] Body Weight 166 lb Weight 88.565 kg [...]
[2021-02-07] MEDS ORDERED: LIDOCAINE W/EPINEPHRINE 1% 20ML VIAL As Ordered ONE (10:00)
[2021-02-07] MEDS ORDERED: BUPIVACAINE/EPIN 0.5% 30 ML VIAL As Ordered ONE (10:00)
[2021-02-07] MEDS ORDERED: ACETAMINOPHEN 1000MG 100ML IV BTL (OFIRMEV) (J0131 PER 10MG) As Ordered ONE (10:27)
[2021-02-07] MEDS ORDERED: fentaNYL 100 MCG/2 ML INJECTION (J3010) As Ordered ONE (10:40)
[2021-02-07] MEDS ORDERED: SUGAMMADEX SODIUM 500 MG/5 ML VIAL (BRIDION) As Ordered ONE (10:44)
[2021-02-07] MEDS ORDERED: METOCLOPRAMIDE INJ 10MG/2ML VIAL (J2765 PER 1) IV PRN (11:40)
[2021-02-07] MEDS ORDERED: PERCOCET 5MG/325MG TAB PO PRN (11:40)
[2021-02-07] MEDS ORDERED: ONDANSETRON 4MG/2ML VIAL IV PRN (11:40)
[2021-02-07] MEDS ORDERED: LR 1,000 ML IV SCH (11:40)
[2021-02-07] MEDS: fentaNYL 100 MCG/2 ML INJECTION (J3010) IV PRN ×2 (12:10→12:16)
[2021-02-07 12:58] VITALS: BP 142/97
--- NOTE | 2021-02-07 13:44 | RO ---
OPERATIVE NOTE DATE OF OPERATION: 02/07/2021 PREOPERATIVE DIAGNOSIS: Chronic tonsillitis. POSTOPERATIVE DIAGNOSIS: Chronic tonsillitis. PROCEDURE: Tonsillectomy. SURGEON: CLINT NOVAK MD DESCRIPTION OF PROCEDURE: Under general anesthesia, the patient was intubated and Muse-Gen mouth gag was inserted. The tonsil area was infiltrated with lidocaine, Epinephrine and Marcaine. Using the cautery, I dissected the tonsil free from its bed on both sides. Any vessels seen were cauterized with suction cautery. The patient tolerated the procedure well. DISPOSITION: The patient was extubated and transferred to the recovery room in excellent condition. There was 5 ml of blood loss.
== END 2021-02-07 13:02 | disposition home or self-care (01) ==
LOC: M SDC 08:24
PROVIDERS: ATTEND Otolaryngology
DX: J35.01 Chronic tonsillitis (principal); I10 Essential (primary) hypertension; E78.5 Hyperlipidemia, unspecified; Z79.899 Other long term (current) drug therapy; F12.10 Cannabis abuse, uncomplicated; Z87.891 Personal history of nicotine dependence; J45.909 Unspecified asthma, uncomplicated; F41.9 Anxiety disorder, unspecified; F32.9 Major depressive disorder, single episode, unspecified; Z88.0 Allergy status to penicillin; Z91.030 Bee allergy status
CPT/HCPCS: 42826; 88302; J0131; J1100; J2250; J2405; J3010

== ENCOUNTER 2021-12-25 04:56 | Emergency (ER) | payer MEDICARE ==
[~2021-12-25] VITALS: Ht 180.3 cm; Wt 86.0 kg
[~2021-12-25 04:56] MED LIST changes: -D31000TA2 PO; +EXCETAB32 PO; -EXCETAB33 PO; -LIDOCAINE 1% MDV 20ML VIAL SQ PRN; -LIDOCAINE 2% 100MG/5ML SDV (FOR ANES.) As Ordered ONE; -LR 1,000 ML IV ONE; -MIDAZOLAM INJ 2MG/2ML VIAL (J2250 PER 1MG) As Ordered ONE; -ONDANSETRON 4MG/2ML VIAL As Ordered ONE; -ROCURONIUM BROMIDE 50 MG/5 ML VIAL As Ordered ONE; +VITA100093 PO; -dexameTHASONE 4 MG/ML 1ML VIAL (J1100 PER 1MG) As Ordered ONE; -fentaNYL 100 MCG/2 ML INJECTION (J3010) As Ordered ONE; -propofoL 200 MG/20 ML VIAL As Ordered ONE
[2021-12-25 05:39] LABS: BASO # 0.1 10^3/uL (0.0-0.2); BASO % 0.9 % (0.0-1.0); EOS # 0.2 10^3/uL (0.0-0.5); EOS % 2.8 % (0.0-3.0); HEMATOCRIT 46.6 % (42.0-52.0); HEMOGLOBIN 15.4 g/dl (13.5-17.5); LYMPH # 3.6 10^3/uL (1.5-5.0); LYMPH % 43.2 % (24.0-44.0); MEAN CORPUSCULAR HEMOGLOBIN 28.5 pg (27.0-33.0); MEAN CORPUSCULAR VOLUME 86.3 fl (80.0-96.0); MONO # 0.8 10^3/uL (0.0-0.8); MONO % 9.4 % (2.0-8.0); NEUTROPHILS # 3.6 10^3/uL (1.5-8.5); NEUTROPHILS % 43.3 % (36.0-66.0); PLATELET COUNT, AUTOMATED 305 10^3/uL (150-450); WHITE BLOOD COUNT 8.2 10^3/uL (4.0-10.0)
[2021-12-25 06:20] LABS: CK-MB VALUE MASS < 1.0 NG/ML (<3.6); CPK CREATINE PHOSPHOKINASE 216 U/L (39-308); MB/CK RELATIVE INDEX 0.46 (< OR =4)
[2021-12-25 06:21] LABS: ALBUMIN 3.8 GM/DL (3.2-5.2); ALT/SGPT 35 U/L (12-78); AMYLASE 127 U/L (25-115); BILIRUBIN,DIRECT 0.1 MG/DL (0.0-0.2); BILIRUBIN,TOTAL 0.4 MG/DL (0.2-1.0); BLOOD UREA NITROGEN 15 MG/DL (7-18); CARBON DIOXIDE LEVEL 29 MEQ/L (21-32); CHLORIDE LEVEL 105 MEQ/L (98-107); CREATININE FOR GFR 1.25 MG/DL (0.70-1.30); GLOMERULAR FILTRATION RATE > 60.0 (>60); GLUCOSE, FASTING 95 MG/DL (70-100); LIPASE 193 U/L (73-393); POTASSIUM SERUM 4.2 MEQ/L (3.5-5.1); SODIUM LEVEL 137 MEQ/L (136-145); TOTAL PROTEIN 7.5 GM/DL (6.4-8.2)
[2021-12-25] MEDS ORDERED: KETOROLAC 30 MG/ML 1ML VIAL IV ONE (07:35)
[2021-12-25] MEDS ORDERED: ONDANSETRON 4MG 2ML VIAL IV ONE (07:35)
[2021-12-25] MEDS ORDERED: NS 1,000 ML IV ONE (07:35)
[2021-12-25] MEDS ORDERED: lisinopriL 5 MG TAB PO ONE (07:35)
[2021-12-25] MEDS ORDERED: LISI5TAB11 PO (08:52)
[2021-12-25] MEDS ORDERED: ONDA4TAB6 PO (08:52)
[2021-12-25] MEDS ORDERED: ADULKIT XX (08:56)
[2021-12-25 08:58] VITALS: BP 120/80
== END 2021-12-25 09:22 | disposition home or self-care (01) ==
LOC: M ED 04:56
DX: Z20.822 Contact with and (suspected) exposure to COVID-19 (principal); R11.2 Nausea with vomiting, unspecified; R19.7 Diarrhea, unspecified; R03.0 Elevated blood-pressure reading, without diagnosis of hypertension; J45.909 Unspecified asthma, uncomplicated; F17.200 Nicotine dependence, unspecified, uncomplicated; Z79.899 Other long term (current) drug therapy; Z88.0 Allergy status to penicillin; Z91.030 Bee allergy status
CPT/HCPCS: 80048; 80076; 82150; 82550; 82553; 83690; 84484; 85025; 87486; 87581; 87633; 87798; 96361; 96374; 96375; 99284; J1885; J2405

== ENCOUNTER 2024-02-16 08:04 | Emergency (ER) | payer OTHER, MEDICARE ==
[~2024-02-16] VITALS: Ht 180.3 cm; Wt 88.2 kg
[~2024-02-16 08:04] MED LIST changes: +ADULKIT XX; +DOXY-441 PO; -DOXY-443 PO; +LISI5TAB11 PO; +ONDA-282 PO; -ROSU40TA4 PO; +ROSU40TA81 PO
[2024-02-16 08:43] VITALS: O2SAT 98
[2024-02-16] MEDS ORDERED: CLEO150C PO (09:57)
[2024-02-16] MEDS ORDERED: IBUP80TA PO (09:57)
[2024-02-16] MEDS: KETOROLAC TROMETHAMINE 10 MG TAB PO ONE (09:58)
[2024-02-16] MEDS: CLINDAMYCIN 150MG CAPSULE PO ONE (09:59)
[2024-02-16 10:00] VITALS: BP 141/101; TEMP 97.3
== END 2024-02-16 10:22 | disposition home or self-care (01) ==
LOC: M ED 08:04
DX: K02.9 Dental caries, unspecified (principal); K08.89 Other specified disorders of teeth and supporting structures; I10 Essential (primary) hypertension; E78.5 Hyperlipidemia, unspecified; J45.909 Unspecified asthma, uncomplicated; F43.10 Post-traumatic stress disorder, unspecified; F41.9 Anxiety disorder, unspecified; F32.A Depression, unspecified; F90.9 Attention-deficit hyperactivity disorder, unspecified type; Z87.820 Personal history of traumatic brain injury; Z79.899 Other long term (current) drug therapy; Z88.0 Allergy status to penicillin; Z91.030 Bee allergy status

== ENCOUNTER 2024-05-07 09:15 | Emergency (ER) | payer OTHER, MEDICARE ==
[~2024-05-07] VITALS: Ht 180.3 cm; Wt 88.3 kg
[~2024-05-07 09:15] MED LIST changes: +CLEO150C PO; +IBUP80TA PO; -LEVO750T14 PO; +LEVO75TAB PO
[2024-05-07] MEDS: ACETAMINOPHEN 325 MG TAB PO ONE (11:30)
[2024-05-07] MEDS: ONDANSETRON 4MG ORAL DISINTEGRATING TAB PO ONE (11:30)
[2024-05-07 11:49] LABS: APPEARANCE, URINE CLEAR (CLEAR); BACTERIA, URINE AUTO NEGATIVE (NEGATIVE); BILIRUBIN, URINE AUTO NEGATIVE (NEGATIVE); BLOOD, URINE BLOOD NEGATIVE (NEGATIVE); COLOR, URINE YELLOW (YELLOW); GLUCOSE, URINE (UA) AUTO NEGATIVE (NEGATIVE); KETONE, URINE AUTO NEGATIVE (NEGATIVE); LEUKOCYTE ESTERASE, URINE AUTO NEGATIVE (NEGATIVE); MUCUS, URINE MODERATE (NEGATIVE); NITRITE, URINE AUTO NEGATIVE (NEGATIVE); PROTEIN, URINE AUTO 1+ mg/dL (NEGATIVE); RBC, URINE AUTO 2 /HPF (0-3); SPECIFIC GRAVITY URINE AUTO 1.034 (1.002-1.035); SQUAMOUS EPITHELIAL CELL UR AU 0 /HPF (0-6); WBC, URINE AUTO 1 /HPF (0-3)
[2024-05-07] MEDS ORDERED: ONDA-282 PO (14:01)
[2024-05-07 14:04] VITALS: BP 153/90; TEMP 97.5; O2SAT 100
== END 2024-05-07 14:15 | disposition home or self-care (01) ==
LOC: M ED 09:15
DX: J09.X2 Influenza due to identified novel influenza A virus with other respiratory manifestations (principal); I10 Essential (primary) hypertension; F90.9 Attention-deficit hyperactivity disorder, unspecified type; F43.10 Post-traumatic stress disorder, unspecified; Z87.820 Personal history of traumatic brain injury; F17.200 Nicotine dependence, unspecified, uncomplicated; Z79.899 Other long term (current) drug therapy; Z88.0 Allergy status to penicillin; Z91.030 Bee allergy status

== ENCOUNTER 2024-05-10 10:40 | Emergency (ER) | payer OTHER, MEDICARE ==
[~2024-05-10] VITALS: Ht 180.3 cm; Wt 81.8 kg
[2024-05-10 13:08] LABS: BASO % 0.3 % (0.0-1.0); EOS % 0.2 % (0.0-3.0); HEMATOCRIT 49.6 % (42.0-52.0); HEMOGLOBIN 16.6 g/dl (13.5-17.5); LYMPH # 2.1 10^3/uL (1.5-5.0); LYMPH % 35.3 % (24.0-44.0); MEAN CORPUSCULAR HEMOGLOBIN 28.6 pg (27.0-33.0); MEAN CORPUSCULAR HGB CONC 33.5 g/dl (32.0-36.5); MEAN CORPUSCULAR VOLUME 85.4 fl (80.0-96.0); MONO % 17.1 % (2.0-8.0); NEUTROPHILS # 2.7 10^3/uL (1.5-8.5); NEUTROPHILS % 46.9 % (36.0-66.0); PLATELET COUNT, AUTOMATED 301 10^3/uL (150-450); RED BLOOD COUNT 5.81 10^6/uL (4.30-6.10); WHITE BLOOD COUNT 5.8 10^3/uL (4.0-10.0)
[2024-05-10 13:18] LABS: INR 1.01; PARTIAL THROMBOPLASTIN TIME 30.4 SECONDS (24.8-34.2); PROTHROMBIN TIME 13.7 SECONDS (12.5-14.5)
[2024-05-10 13:43] LABS: BLOOD UREA NITROGEN 13 MG/DL (9-23); CALCIUM LEVEL 9.1 MG/DL (8.5-10.1); CARBON DIOXIDE LEVEL 24 MMOL/L (20-31); CHLORIDE LEVEL 107 MMOL/L (98-107); GLOMERULAR FILTRATION RATE > 60.0 (>60); GLUCOSE, FASTING 84 MG/DL (60-100); POTASSIUM SERUM 3.7 MMOL/L (3.5-5.1); SODIUM LEVEL 141 MMOL/L (136-145)
[2024-05-10] MEDS ORDERED: ISOVUE-370 76% 100ML VIAL As Ordered ONE (15:23)
[2024-05-10] MEDS: NS (Normal Saline) 0.9% 1,000 ML IV ONE (15:42)
[2024-05-10] MEDS: PANTOPRAZOLE 40MG VIAL IV ONE (17:07)
[2024-05-10] MEDS: ONDANSETRON 4MG 2ML VIAL IV ONE (17:07)
[2024-05-10] MEDS ORDERED: OMEP40CA4 PO (18:03)
[2024-05-10] MEDS ORDERED: ONDA-282 PO (18:03)
[2024-05-10 18:18] VITALS: BP 154/97; TEMP 98.8; O2SAT 100
== END 2024-05-10 18:18 | disposition home or self-care (01) ==
LOC: EDBD 10:40 → M ED 10:40
DX: J06.9 Acute upper respiratory infection, unspecified (principal); F12.10 Cannabis abuse, uncomplicated; Z79.899 Other long term (current) drug therapy; Z88.0 Allergy status to penicillin; Z91.030 Bee allergy status
CPT/HCPCS: 71046; 74177; 80048; 85025; 85610; 85730; 86850; 86900; 86901; 96374; 96375; 99285; J2405; J2470; Q9967